=== PATIENT | female | born 1940 | race Caucasian/White ===

== ENCOUNTER → 2018-07-19 10:33 | Outpatient (CLI) | payer MEDICARE, SELFPAY ==
--- NOTE | 2018-07-19 | DI.MG.S_ITS ---
UNILATERAL LEFT DIGITAL SCREENING MAMMOGRAM 3D/2D WITH CAD POST MASTECTOMY: 07/19/2018 CLINICAL: Routine screening. Personal history of right breast cancer. Family history of breast cancer. Comparison is made to exams dated: 05/22/2017 mammogram, 05/13/2016 mammogram, and 12/02/2015 mammogram - [facility]. There are scattered fibroglandular elements in left breast. Current study was also evaluated with a Computer Aided Detection (CAD) system. There are stable benign post operative findings in the left breast. No significant masses, calcifications, or other findings are seen in the breast. There has been no significant interval change. IMPRESSION: There is no mammographic evidence of malignancy. A 1 year screening mammogram is recommended.(07/20/2019) This exam was interpreted at Station ID: [id number]. NOTE: For mammograms, a report in lay terms will be sent to the patient. Approximately 15% of breast malignancies will not be visualized mammographically. In the management of a palpable breast mass, a negative mammogram must not discourage biopsy of a clinically suspicious lesion. Electronically Signed By: Morgan [email or web address]:07/19/2018 11:56:36 copy to: Holly Perez letter sent: Normal Exam ACR BI-RADS Category 2: Benign Finding(s) 3342F
== END ==
PROVIDERS: PCP Family Medicine; Visit Provider Family Medicine
DX: Z12.31 Encounter for screening mammogram for malignant neoplasm of breast (principal); Z85.3 Personal history of malignant neoplasm of breast; Z80.3 Family history of malignant neoplasm of breast
CPT/HCPCS: 77063; 77065

== ENCOUNTER → 2019-03-06 12:59 | Outpatient (CLI) | payer MEDICARE, SELFPAY | PROVIDERS: PCP Family Medicine; Visit Provider Obstetrics & Gynecology | DX: R31.9 Hematuria, unspecified (principal); R39.15 Urgency of urination | CPT/HCPCS: 87077; 87086; 87186 ==

== ENCOUNTER 2019-04-05 16:54 | Emergency (ER) | payer MEDICARE, SELFPAY ==
[2019-04-05 16:57] VITALS: BP 129/69; PULSE 83; RESP 14; TEMP 37.5; O2SAT 96; BMI 25.4
--- NOTE | 2019-04-05 17:32 | ED_ITS ---
HPI - Female Genitourinary <Jamia Kidd PA-C - Last Filed: 04/05/19 20:50> General Chief complaint: Urogenital-Female Stated complaint: VAGINAL PAIN Time Seen by Provider: 04/05/19 17:14 Source: patient Mode of arrival: ambulatory Limitations: no limitations History of Present Illness HPI Narrative: This 78-year-old female states she was sent by her PCP for vaginal pain, possible prolapse or rectal bleed. She states that she has been having intermittent problems with discharge. She was treated for yeast infection and UTI a couple of weeks ago. She states that she had some minimal spotting, then has had some persistent brownish/harrison discharge that gradually got worse. She states that Dr. Perez had her increase her vaginal gel for this. She states that today, vaginal area and pelvis feels ?sore?, not like previous yeast infection, and still has persistent discharge. She denies any dysuria, hematuria or other urinary symptoms. She states her bottom also feels sore with sitting. She states that her stool was dark yesterday and this morning and felt like she had to strain, however bowel movement this afternoon was normal. She brought in a sample from this morning. She has not noted any new masses, just states the whole area feels sore. She isn't exactly sure why she was sent to the ED. She does have a pessary that had been causing some irritation, however that was replaced because she got better by her last visit. Related Data Previous Rx's Medication Instructions Recorded fluconazole 150 mg tablet 150 mg PO ONCE #1 tab 03/06/19 nystatin-triamcinolone 100,000 1 applictn TOP BID #30 gram 03/06/19 unit/gram-0.1 % topical ointment cephalexin [Keflex] 500 mg PO Q12H 7 Days #14 cap 04/05/19 Allergies Allergy/AdvReac Type Severity Reaction Status Date / Time No Known Drug Allergies Allergy Verified 04/05/19 16:57 Review of Systems <Jamia Kidd PA-C - Last Filed: 04/05/19 20:50> Review of Systems ROS Unobtainable: All systems reviewed & are unremarkable except as noted in HPI and below PFSH <Jamia Kidd PA-C - Last Filed: 04/05/19 20:50> Medical History Breast cancer (Resolved 2000) Colorectal cancer (Resolved 2007) Surgical History (Updated 06/12/18 @ 09:35 by Radha Williamson) H/O right hemicolectomy (Resolved 2007) History of bladder suspension procedure (Resolved 2003) Status post appendectomy (Resolved) Status post partial mastectomy (Resolved 2000) Status post tonsillectomy and adenoidectomy (Resolved 1946) Status post vaginal hysterectomy (Resolved 2003) Social History Smoking Status: Never smoker Social History Smoking Status: Never smoker Exam <Jamia Kidd PA-C - Last Filed: 04/05/19 20:50> Narrative Exam Narrative: GENERAL APPEARANCE: Patient sitting comfortably, in no distress. HEENT: PERRL, EOMI, no scleral icterus, conjunctivae pink NECK: Supple LUNGS: Clear to auscultation bilaterally. HEART: Rate and rhythm regular, normal S1 and S2, no S3 or S4. ABDOMEN: Soft, nontender, nondistended, bowel sounds present x 4 quadrants, no masses palpable, no CVAT EXTREMITIES: No edema, no cyanosis : Vaginal tissue is very atrophic, erythematous and shiny. There is visible thin, light brown/opaque discharge in the vaginal vault, tender with speculum insertion. No palpable lesions. Pessary noted. RECTAL: No external lesions or tenderness, minimal brown stool in vault, guaiac negative (sample tested from earlier today as well, also guaiac negative) DERMATOLOGIC: No jaundice or exanthem NEUROLOGIC: Alert and oriented with normal speech and coordination Initial Vital Signs Initial Vital Signs: Vital Signs Temperature 99.5 F 04/05/19 16:57 Pulse Rate 83 04/05/19 16:57 Respiratory Rate 14 04/05/19 16:57 Blood Pressure 129/69 04/05/19 16:57 Pulse Oximetry 96 04/05/19 16:57 <Sunny Lanza MD - Last Filed: 04/06/19 02:42> Initial Vital Signs Initial Vital Signs: Vital Signs Temperature 99.5 F 04/05/19 16:57 Pulse Rate 83 04/05/19 16:57 Respiratory Rate 14 04/05/19 16:57 Blood Pressure 129/69 04/05/19 16:57 Pulse Oximetry 96 04/05/19 16:57 Course <Jamia Kidd PA-C - Last Filed: 04/05/19 20:50> Orders Ordered: ED Orders 04/05/19 18:10 SVITLANA Prep Stat 04/05/19 18:20 Urine Culture Stat Urine Microscopic Stat Wet Prep Tric BV Astrid Stat Vital Signs - 8 hr 04/05/19 19:28 Temperature 98.6 F Pulse Rate 79 Respiratory Rate 15 Blood Pressure [Left Arm] 135/75 Pulse Oximetry 98 <Sunny Lanza MD - Last Filed: 04/06/19 02:42> Orders Ordered: ED Orders 04/05/19 18:10 SVITLANA Prep Stat 04/05/19 18:20 Urine Culture Stat Urine Microscopic Stat Wet Prep Tric BV Astrid Stat Vital Signs - 8 hr 04/05/19 19:28 Temperature 98.6 F Pulse Rate 79 Respiratory Rate 15 Blood Pressure [Left Arm] 135/75 Pulse Oximetry 98 MDM - Female Genitourinary <Jamia Kidd PA-C - Last Filed: 04/05/19 20:50> Lab Data Lab Results 04/05/19 Range/Units 18:20 Urine RBC 5-10/hpf H (0-5/HPF) Urine WBC 10-30/hpf H (0-5/HPF) Ur Squamous Epith Cells 0-1 /hpf (0-5/HPF) Urine Bacteria Few (2-10) H (None) Urine Mucus 1+ H (Negative) Ur Culture Indicated? Specimen cultured Point of Care Testing Stool Occult Blood Negative Urine Dip Bedside Urine Glucose Negative Bedside Urine Bilirubin - Negative Bedside Urine Ketone - Negative Urine Specific [place] 1.030 Bedside Urine Occult Blood +/- Bedside Urine pH 6.0 Bedside Urine Protein +/- 15 Bedside Urine Urobilinogen - Negative Bedside Urine Nitrite - Negative Bedside Urine Leukocytes ++ 125 Esterase <Sunny Lanza MD - Last Filed: 04/06/19 02:42> Lab Data Lab Results 04/05/19 Range/Units 18:20 Urine RBC 5-10/hpf H (0-5/HPF) Urine WBC 10-30/hpf H (0-5/HPF) Ur Squamous Epith Cells 0-1 /hpf (0-5/HPF) Urine Bacteria Few (2-10) H (None) Urine Mucus 1+ H (Negative) Ur Culture Indicated? Specimen cultured Point of Care Testing Stool Occult Blood Negative Urine Dip Bedside Urine Glucose Negative Bedside Urine Bilirubin - Negative Bedside Urine Ketone - Negative Urine Specific [place] 1.030 Bedside Urine Occult Blood +/- Bedside Urine pH 6.0 Bedside Urine Protein +/- 15 Bedside Urine Urobilinogen - Negative Bedside Urine Nitrite - Negative Bedside Urine Leukocytes ++ 125 Esterase Discharge Plan Departure Patient Disposition: Home Clinical Impression: Discharge of vagina, Female pelvic pain UTI (urinary tract infection) Qualifiers: Urinary tract infection type: site unspecified Hematuria presence: without hematuria Qualified Code(s): N39.0 - Urinary tract infection, site not specified Discharge Date/Time: 04/05/19 19:40 Interventions: ED Discharge Assessment Last Done: 04/05/19 19:39 Instructions: DI for Urinary Retention in Women, DI for Atrophic Vaginitis Activity Restrictions/Additional Instructions: As we talked about, you should return if you have any acutely worsening symptoms, i.e. severe pain, or new symptoms such as vomiting or fever. Otherwise, you can call Dr. Perez's office 1st thing on Monday, let them know you were seen in the emergency room and need to follow-up. Your test for typical vaginal infections was negative today. Your stool did not have any microscopic blood. Your urine did have some bacteria in it so I have sent an antibiotic to [facility] for you to take until your cultures are back and you can follow up. It is not clear whether your discharge is due to irritation that you have had recently and using the new gel medication more frequently, so please make sure you follow up assess your progress Prescriptions: New cephalexin [Keflex] 500 mg capsule 500 mg PO Q12H 7 Days Qty: 14 RF: 0 No Action oxyquinoline-sod.lauryl sulfat 113.4 GM gel Qty: 1 RF: 0 fluconazole [Diflucan] 150 mg tablet 150 mg PO ONCE Qty: 1 RF: 0 nystatin-triamcinolone 100,000-0.1 unit/gram-% ointment 1 applictn TOP BID Qty: 30 RF: 0 Referrals: Alonso Cordero MD [Primary Care Provider] - Holly Perez MD [Physician] - <Sunny Lanza MD - Last Filed: 04/06/19 02:42> Cosign ED Attending Cosignature Attestation: I was present in the ER at the time this patient's care. I was available for consultation or to see the patient directly. I agree with the assessment and treatment plan.
[2019-04-05 19:03] LABS: Bacteria Urine Few (2-10); Culture Indicated Urine Specimen Cultured; Mucus Urine 1+ (Negative); RBC Urine 5-10/HPF (0-5/HPF); Squamous Epithelial Cell Urine 0-1 /HPF (0-5/HPF); WBC Urine 10-30/HPF (0-5/HPF)
[2019-04-05 19:28] VITALS: BP 135/75; PULSE 79; RESP 15; TEMP 37; O2SAT 98
== END 2019-04-05 19:40 | disposition home or self-care (01) ==
PROVIDERS: Emergency Provider Internal Medicine; PCP Family Medicine
DX: N89.8 Other specified noninflammatory disorders of vagina (principal); R10.2 Pelvic and perineal pain; N39.0 Urinary tract infection, site not specified
CPT/HCPCS: 81003; 81015; 82272; 87077; 87086; 87147; 87210; 87220; 99282; 99283

== ENCOUNTER → 2019-10-03 09:21 | Outpatient (CLI) | payer MEDICARE, SELFPAY ==
--- NOTE | 2019-10-03 | DI.MG.S_ITS ---
UNILATERAL LEFT DIGITAL SCREENING MAMMOGRAM 3D/2D WITH CAD POST MASTECTOMY: 10/03/2019 CLINICAL: Routine screening. Personal history of right breast cancer. Family history of breast cancer. Comparison is made to exams dated: 07/19/2018 mammogram, 05/22/2017 mammogram, 05/13/2016 mammogram, 12/02/2015 localization, 09/21/2015 mammogram, and 05/06/2015 mammogram - [facility]. There are scattered fibroglandular elements in left breast. Current study was also evaluated with a Computer Aided Detection (CAD) system. There are benign post operative findings in the left breast/axilla that are stable to prior exams, with underlying surgical clips and overlying linear skin scar marker. No significant masses, calcifications, or other findings are seen in the breast. There has been no significant interval change. IMPRESSION: There is no mammographic evidence of malignancy. A 1 year screening mammogram is recommended. This exam was interpreted at Station ID: [id number]. NOTE: For mammograms, a report in lay terms will be sent to the patient. Approximately 15% of breast malignancies will not be visualized mammographically. In the management of a palpable breast mass, a negative mammogram must not discourage biopsy of a clinically suspicious lesion. Electronically Signed By: Neal Cedillo M.D. ecl/:10/03/2019 16:49:38 letter sent: Normal Exam ACR BI-RADS Category 2: Benign Finding(s) 3342F
== END ==
PROVIDERS: Visit Provider Student in an Organized Health Care Education/Training Program
DX: Z12.31 Encounter for screening mammogram for malignant neoplasm of breast (principal); Z80.3 Family history of malignant neoplasm of breast; Z85.3 Personal history of malignant neoplasm of breast
CPT/HCPCS: 77063; 77067

== ENCOUNTER 2019-11-25 12:52 | Day surgery (SDC) | payer MEDICARE, SELFPAY ==
[2019-11-25] MEDS: SODIUM CHLORIDE 0.9% 1,000 ML 200 ML IV (14:41)
[2019-11-25 14:44] VITALS: BP 138/74; PULSE 75; RESP 16; TEMP 36.1; O2SAT 98; BMI 23.8
--- NOTE | 2019-11-25 15:27 | PM.HP.1 ---
History of Present Illness History of Present Illness Date Patient Seen: 11/25/19 Time Patient Seen: 15:27 Chief complaint: [id number] Narrative: 79-year-old female patient who had a colon resection for carcinoma 2007 is asymptomatic and here for screening colonoscopy Patient History Medical History Breast cancer (Resolved 2000) Colorectal cancer (Resolved 2007) Surgical History H/O right hemicolectomy (Resolved 2007) History of bladder suspension procedure (Resolved 2003) Status post appendectomy (Resolved) Status post partial mastectomy (Resolved 2000) Status post tonsillectomy and adenoidectomy (Resolved 1946) Status post vaginal hysterectomy (Resolved 2003) Family & Social History Social History: household members spouse Tobacco & Substance use: Smoking Status Never smoker alcohol intake never alcohol intake frequency holiday/special occasion Substance Use Type does not use Meds Home Medications and Allergies Allergies Allergy/AdvReac Type Severity Reaction Status Date / Time No Known Drug Allergies Allergy Verified 11/25/19 14:42 Review of Systems Review of Systems ROS: Yes All systems reviewed with the patient and are negative except as otherwise documented Exam Vital Signs (past 8 hours): - 11/25/19 14:44 Temperature 97 F L Pulse Rate 75 Respiratory Rate 16 Blood Pressure 138/74 Pulse Oximetry 98 Oxygen Delivery Method Room Air Narrative Exam Narrative: Patient is asymptomatic resting comfortably in bed Lungs are clear with no rales or wheezes Heart regular rhythm no murmur Abdomen soft nontender no organomegaly Rectal be done at colonoscopy Assessment & Plan Assessment & Plan narrative: 79-year-old with a history of right colectomy for carcinoma here for screening colonoscopy she is asymptomatic. She has no unanswered questions.
--- NOTE | 2019-11-25 16:28 | SUR.OPER ---
unable to pass the scope past 50 cm
--- NOTE | 2019-11-25 16:29 | PM.OP.ENDO ---
Operative Date/Time/Diagnoses Date of procedure: 11/25/19 Time of procedure: 16:29 Pre-op diagnosis: History of colon cancer right colectomy 2007 Post-op diagnosis: other (Severe sigmoid diverticulosis retrograde obstruction of colon at 50 cm unknown etiology) Procedure & Clinicians Study performed: Colonoscopy a 50 cm left colon. Same procedure as scheduled: No Surgeon: Devin Peterson Procedure Notes SCOAP/Timeout: This was done Procedure in detail: The patient was properly identified during surgical pause she was given a total of 3 mg of Versed and 150 micro g of fentanyl and remained comfortable throughout the endoscopy. The flexible fiberoptic colonoscope inserted transanally up to 50 cm in the descending colon. The patient has marked severe sigmoid diverticulosis making this very difficult. No polyps or tumors were seen. At the level of 50 cm there was an abrupt obstruction to any retrograde passage and the lumen could not be identified. I did not see tumor at that area. Attempts at entering the colon at that level were impossible and were associated with some minor bleeding. I decided to abandon further endoscopy attempts for fear of perforating or tearing the colon. I recommend an air-contrast barium enema or oral contrast CT scan of the area to further identify pathology. Scope withdrawal time: 7 Sedation minutes: 15 Findings: diverticulosis Impression: Obstruction to retrograde passage of the scope at 50 cm may be secondary to severe diverticulosis at that area or tumor in a patient with previous colon carcinoma. Further investigation with barium enema and or CT scan with oral contrast is indicated. Post-procedure Plan for aftercare: Recommend barium enema and or CT scan with oral contrast. Disposition: PACU
[2019-11-25] MEDS: fentaNYL 250 MCG/5 ML INJ IV (16:31)
[2019-11-25] MEDS: MIDAZOLAM 5 MG/5 ML VIAL IV (16:32)
[2019-11-25 16:34] VITALS: BP 126/64; PULSE 84; RESP 16; TEMP 36.6; O2SAT 95
[2019-11-25 16:39] VITALS: BP 108/51; PULSE 75; RESP 10; O2SAT 95
[2019-11-25 16:44] VITALS: BP 116/62; PULSE 76; RESP 10; O2SAT 95
[2019-11-25 16:49] VITALS: BP 115/54; PULSE 79; RESP 13; TEMP 36.8; O2SAT 97
[2019-11-25 17:00] VITALS: BP 112/68; PULSE 74; RESP 12; TEMP 36.4; O2SAT 96
--- NOTE | 2019-11-25 17:11 | SUR.PHASEII ---
1710 Pt requires frequent repetition to explain test outcome and follow-up. Spouse understands what is needed to do ( spoke to him). Pt drinking juice, tolerating well, abdomen soft.
--- NOTE | 2019-11-25 17:27 | SUR.PHASEII ---
1721 to car in w/c, more alert, pleasant and talking. No further questions.
== END 2019-11-25 17:21 | disposition home or self-care (01) ==
PROVIDERS: PCP Student in an Organized Health Care Education/Training Program; Referring Provider Surgery; Visit Provider Surgery
PROC: 0DJD8ZZ Inspection of Lower Intestinal Tract, Via Natural or Artificial Opening Endoscopic (ICD-10-PCS; CPT 45378; principal; 2019-11-25 16:00)
DX: Z12.11 Encounter for screening for malignant neoplasm of colon (principal); Z85.038 Personal history of other malignant neoplasm of large intestine; Z90.49 Acquired absence of other specified parts of digestive tract; K57.30 Diverticulosis of large intestine without perforation or abscess without bleeding; K56.609 Unspecified intestinal obstruction, unspecified as to partial versus complete obstruction; Z53.09 Procedure and treatment not carried out because of other contraindication
CPT/HCPCS: 45378; 99152; J2250; J3010

== ENCOUNTER → 2020-01-02 11:59 | Outpatient (CLI) | payer MEDICARE, SELFPAY ==
[2020-01-02 12:37] LABS: BUN Creatinine Ratio 14.7 (6-22); Blood Urea Nitrogen 10 mg/dL (7-17); Estimated Glomerular Filt Rate > 60.0 mL/min (>60)
--- NOTE | 2020-01-02 13:42 | DI.CT.S_ITS ---
PROCEDURE: CT ABDOMEN PELVIS W CON INDICATIONS: screening for colon cancer/incomplete colonoscopy TECHNIQUE: After the administration of oral and intravenous contrast, 5 mm thick sections acquired from the diaphragms to the symphysis. 5 mm thick coronal and sagittal reformats were performed. For radiation dose reduction, the following was used: automated exposure control, adjustment of mA and/or kV according to patient size. COMPARISON: [facility], CT, ABDOMEN/PELVIS WITH CONTRAST, 03/27/2008, 12:11. FINDINGS: Image quality: Excellent. ABDOMEN: Lung bases: Lung bases are clear. Heart size is normal. Solid organs: Liver is normal in size and enhancement. Gallbladder appears normal. Biliary system is non-dilated. Pancreas enhances normally. Spleen is normal in size and enhancement. No adrenal nodules. Kidneys are normal in size and enhancement, without hydronephrosis. Peritoneum and bowel: Stomach, small bowel, and colon loops are normal in caliber and wall thickness. No free fluid or air. Nodes and vessels: No retroperitoneal or mesenteric adenopathy. Aorta and inferior vena cava are normal in caliber. Miscellaneous: No ventral hernias. PELVIS: Genitourinary: Bladder wall thickness is normal. Miscellaneous: No inguinal hernias or adenopathy. Diverticulosis is present at the sigmoid colon but no diverticulitis or evidence of colonic mass lesion is found. Quality of visualization of the colon is excellent considering normal amount of stool within throughout. Bones: No suspicious bony lesions. No vertebral body compression fractures. IMPRESSION: The colon is relatively redundant and there is diverticulosis involving the sigmoid colon without acute diverticulitis. No evidence of colonic malignancy. No acute disease is found. Dictated by: Jean-Pierre Moody M.D. on 01/02/2020 at 14:03 Approved by: Jean-Pierre Moody M.D. on 01/02/2020 at 14:06
== END ==
PROVIDERS: Surgery; PCP Student in an Organized Health Care Education/Training Program; Referring Provider Student in an Organized Health Care Education/Training Program; Visit Provider Surgery
DX: Z12.11 Encounter for screening for malignant neoplasm of colon (principal); R59.0 Localized enlarged lymph nodes; K57.30 Diverticulosis of large intestine without perforation or abscess without bleeding
CPT/HCPCS: 36415; 74177; 82565; 84520; Q9967

== ENCOUNTER → 2020-11-19 10:00 | Outpatient (CLI) | payer MEDICARE, SELFPAY ==
--- NOTE | 2020-11-19 | DI.MG.S_ITS ---
UNILATERAL LEFT DIGITAL SCREENING MAMMOGRAM 3D/2D WITH CAD POST MASTECTOMY: 11/19/2020 CLINICAL: Routine screening. Personal history of right breast cancer. Comparison is made to exams dated: 10/03/2019 mammogram, 07/19/2018 mammogram, and 05/22/2017 mammogram - [facility]. There are scattered fibroglandular elements in left breast. Current study was also evaluated with a Computer Aided Detection (CAD) system. There are benign post operative findings in the left breast. No significant masses, calcifications, or other findings are seen in the breast. There has been no significant interval change. IMPRESSION: BENIGN There is no mammographic evidence of malignancy. A 1 year screening mammogram is recommended. This exam was interpreted at Station ID: [id number]. NOTE: For mammograms, a report in lay terms will be sent to the patient. Approximately 15% of breast malignancies will not be visualized mammographically. In the management of a palpable breast mass, a negative mammogram must not discourage biopsy of a clinically suspicious lesion. Electronically Signed By: Ricardo burgos/mague:11/19/2020 11:06:35 letter sent: Normal Exam ACR BI-RADS Category 2: Benign Finding(s) 3342F
== END ==
PROVIDERS: PCP Student in an Organized Health Care Education/Training Program; Referring Provider Student in an Organized Health Care Education/Training Program; Visit Provider Student in an Organized Health Care Education/Training Program
DX: Z12.31 Encounter for screening mammogram for malignant neoplasm of breast (principal); Z85.3 Personal history of malignant neoplasm of breast
CPT/HCPCS: 77063; 77067

== ENCOUNTER 2020-12-15 15:33 | Emergency (ER) | payer MEDICARE, SELFPAY ==
[2020-12-15 15:48] VITALS: BP 157/70; PULSE 75; RESP 22; TEMP 36.8; O2SAT 96
--- NOTE | 2020-12-15 18:37 | DI.RAD.S_ITS ---
PROCEDURE: XR ABDOMEN MIN 2V INDICATIONS: vomiting s/p covid shot TECHNIQUE: 2 views of the abdomen were acquired. COMPARISON: None. FINDINGS: Surgical changes and devices: Pelvic surgical clips. Bowel: No pneumoperitoneum. The bowel gas pattern is normal. Soft tissues: No masses; visualized solid organ contours appear normal in size. No suspicious abdominal calcifications. Bones: No suspicious bony abnormalities. IMPRESSION: Negative examination as above Dictated by: Tay Oconnor M.D. on 12/15/2020 at 19:01 Approved by: Tay Oconnor M.D. on 12/15/2020 at 19:01
[2020-12-15 19:54] VITALS: BP 146/70; PULSE 71; RESP 18; O2SAT 96
[2020-12-15] MEDS: SODIUM CHLORIDE 0.9% 1,000 ML 1000 ML IV (20:06)
[2020-12-15] MEDS: ONDANSETRON 4 MG/2 ML INJ IV (20:06)
--- NOTE | 2020-12-15 20:12 | ED_ITS ---
HPI - Nausea/Vomiting/Diarrhea General Chief complaint: Nausea/Vomiting/Diarrhea Stated complaint: vomiting s/p covid shot Time Seen by Provider: 12/15/20 18:37 Source: patient and family Mode of arrival: Ambulatory Limitations: no limitations History of Present Illness HPI Narrative: This is a 80-year-old female who states that she had her 2nd COVID vaccine yesterday. She started developed some arm pain and then nausea, vomiting and had not been able to keep anything down overnight. She did have several bowel movements which she stated or solid, she denies any hematochezia or melena. She states she has had generalized abdominal pain sort of a twisting sensation. She has also recently had a bladder infection and has been on oral antibiotics. She has got 4 doses left. She was unable to take any today because of her emesis. She has urinary symptoms had resolved the day before her immunization. She denies any fevers. Patient states she does not take any other medications daily. She does have a significant medical history with what she states was an abdominal surgery called a tram,she describes this as a reconstructive surgery for mastectomy status post cancer where they took a portion of her abdomen and placed in the breast. She had multiple complications and had 3 subsequent surgeries. She has had a hysterectomy. Hemicolectomy. She states she is feeling significantly better at this time. Related Data Allergies Allergy/AdvReac Type Severity Reaction Status Date / Time No Known Drug Allergies Allergy Verified 11/25/19 14:42 Review of Systems Review of Systems ROS Unobtainable: All systems reviewed & are unremarkable except as noted in HPI and below Patient History Medical History (Updated 12/15/20 @ 20:31 by Lisette Davila DO) Breast cancer (2000) Colorectal cancer (2007) Surgical History H/O right hemicolectomy (2007) History of bladder suspension procedure (2003) Status post appendectomy Status post partial mastectomy (2000) Status post tonsillectomy and adenoidectomy (1946) Status post vaginal hysterectomy (2003) Social History household members: spouse Smoking Status: Never smoker alcohol intake: never Smoking Status: Never smoker alcohol intake frequency: holidays/special occasions only Substance Use Type: does not use Exam Narrative Exam Narrative: GENERAL: Alert and oriented x three, thin, well-appearing elderly female in mild distress. HEENT: Head normocephalic, atraumatic, EOMI, pupils reactive, face symmetric, moist mucous membranes NECK: Supple, full range of motion CARDIOVASCULAR: Regular rate and rhythm without murmurs, rubs or gallops. RESPIRATORY: Breath sounds equal bilaterally, no wheezes rales or rhonchi. ABDOMEN: Soft, mild generalized tenderness. Normoactive bowel sounds all 4 quadrants. No guarding or rebound, rigidity, no mass : No CVA tenderness EXTREMITIES: Normal range of motion, no clubbing or edema. Neurovascularly intact NEUROLOGICAL: Cranial nerves II through XII grossly intact. Moving all extremities SKIN: Warm, dry, no petechiae, no rashes or lesions. Initial Vital Signs Initial Vital Signs: Vital Signs Temperature 98.3 F 12/15/20 15:48 Pulse Rate 75 12/15/20 15:48 Respiratory Rate 22 12/15/20 15:48 Blood Pressure 157/70 H 12/15/20 15:48 Pulse Oximetry 96 12/15/20 15:48 Course Orders Ordered: ED Orders 12/15/20 18:37 XR abdomen min 2V Stat 12/15/20 20:14 Complete Blood Count AUTO DIFF Stat Comprehensive Metabolic Panel Stat Lipase Stat Discontinued Medications Sodium Chloride (Normal Saline 0.9%) 1,000 mls @ 1,000 mls/hr IV BOLUS ONE Stop: 12/15/20 19:36 Last Infusion: 12/15/20 21:10 Dose: 0 mls/hr Documented by: Admin: 12/15/20 20:06 Dose: 1,000 mls/hr Documented by: LISA Ondansetron HCl (Ondansetron 4 Mg/2 Ml Inj) 4 mg IV NOW ONE Stop: 12/15/20 18:38 Last Admin: 12/15/20 20:06 Dose: 4 mg Documented by: LISA Ondansetron HCl (Ondansetron 4 Mg Odt Prepack) 1 bottle MISC SEEINSTR ONE Stop: 12/15/20 21:32 Last Admin: 12/15/20 21:36 Dose: 1 bottle Documented by: PAU Vital Signs Vital signs: Vital Signs - 8 hr 12/15/20 19:54 12/15/20 21:28 12/15/20 21:40 Pulse Rate 71 61 84 Respiratory Rate 18 16 16 Blood Pressure 146/70 H 121/68 121/56 L Pulse Oximetry 96 100 97 MDM - Nausea/Vomiting/Diarrhea Lab Data Attestation: I reviewed the patient's lab results. Result diagrams: 12/15/20 20:14 12/15/20 20:14 Labs: Lab Results 12/15/20 12/15/20 Range/Units 20:14 20:14 WBC 9.6 (4.5-11.0) X10^3/uL RBC 4.38 (4.0-5.2) X10^6/uL Hgb 14.0 (12.0-16.0) g/dL Hct 42.0 (36-46) % MCV 95.9 (80-100) fL MCH 31.9 (26-34) PG MCHC 33.3 (30-36) % RDW 13.9 (11.6-14.8) % Plt Count 246 (150-400) X10^3/uL Neut % (Auto) 75.4 H (50-75) % Lymph % (Auto) 14.9 L (25-40) % [place] % (Auto) 7.4 (3-14) % Eos % (Auto) 1.4 L (2-4) % Baso % (Auto) 0.9 (0-2) % Neut # (Auto) 7200 H (2170-2300) /uL Lymph # (Auto) 1400 (7580-1454) /uL [place] # (Auto) 700 (0-900) /uL Eos # (Auto) 100 (0-450) /uL Baso # (Auto) 100 (0-100) /uL Sodium 136 L (137-145) mmol/L Potassium 3.4 (3.4-5.1) mmol/L Chloride 102 (98-107) mmol/L Carbon Dioxide 28 (22-32) mmol/L BUN 18 H (7-17) mg/dL Creatinine 0.71 (0.52-1.04) mg/dL Estimated GFR > 60.0 (>60) mL/min BUN/Creatinine Ratio 25.4 H (6-22) Glucose 124 H (80-110) mg/dL Calcium 9.8 (8.4-10.2) mg/dL Total Bilirubin 0.7 (0.2-1.3) mg/dL AST 25 (14-36) IU/L ALT 15 (<35) IU/L Alkaline Phosphatase 66 (38-126) U/L Total Protein 7.3 (6.3-8.2) g/dL Albumin 4.2 (3.5-5.0) g/dL Globulin 3.1 (1.7-4.1) g/dL Albumin/Globulin Ratio 1.4 (1.0-2.8) Lipase 43 (23-300) U/L Urine Dip Bedside Urine Glucose Negative Bedside Urine Bilirubin - Negative Bedside Urine Ketone - Negative Urine Specific [place] 1.015 Bedside Urine Occult Blood +/- Bedside Urine pH 6.0 Bedside Urine Protein - Negative Bedside Urine Urobilinogen - Negative Bedside Urine Nitrite - Negative Bedside Urine Leukocytes - Negative Esterase Imaging Data Abdominal x-ray: Radiologist's Impression: Mela Nguyen 80 F [address] [id number] ReportSigned Patient: Mela Nguyen AMR#: [id number]: 1940cct:[id number]/Sex: 80 / FDate of Service: 12/15/20Loc: EDAccession Number: [id number] Procedure: XR abdomen min 2V Ordering Provider: Lisette Davila D.O. PROCEDURE: XR ABDOMEN MIN 2V INDICATIONS: vomiting s/p covid shot TECHNIQUE: 2 views of the abdomen were acquired. COMPARISON: None. FINDINGS: Surgical changes and devices: Pelvic surgical clips. Bowel: No pneumoperitoneum. The bowel gas pattern is normal. Soft tissues: No masses; visualized solid organ contours appear normal in size. No suspicious abdominal calcifications. Bones: No suspicious bony abnormalities. IMPRESSION: Negative examination as above Dictated by: Tay Oconnor M.D. on 12/15/2020 at 19:01 Approved by: Tay Oconnor M.D. on 12/15/2020 at 19:01 [facility] Narrative Medical decision making narrative: Pleasant 80-year-old female comes emergency department with vomiting status 2nd coronavirus immunization. Symptoms started several hours later. She does have a recent history significant for bladder infection which has been improving. She has missed her most recent dose of antibiotics. Patient x-ray does not show any obstructive symptoms. She does not have any obstructive symptoms with normal bowel movements but has had vomiting. Her pain is improved after fluids. Patient tolerating oral challenge. Urine does not show any acute changes. For DC home with return precautions for red flag symptoms. Discharge Plan Departure Patient Disposition: Home Clinical Impression: Vomiting Activity Restrictions/Additional Instructions: Follow up with your physician in the next 2-3 days if your symptoms have not totally resolved. You may take Zofran 1 tab every 6 hours as needed for nausea. Continue home medications as prescribed. Return to the ER for fevers, persistent vomiting, new or worsening abdominal pain, black or bloody stools, inability to have a bowel movement, difficulty with urination, recurrent frequency, dysuria urgency, lightheadedness or passing out, new chest pain or shortness of breath or other new or concerning symptoms. Referrals: Latanya Strong MD [Primary Care Provider] -
[2020-12-15 20:20] LABS: Add Manual Diff / Slide Review NO; Basophils Absolute Auto 100 /uL (0-100); Basophils Percent Auto 0.9 % (0-2); Eosinophils Absolute Auto 100 /uL (0-450); Eosinophils Percent Auto 1.4 % (2-4); Lymphocytes Absolute Auto 1400 /uL (1100-4500); Lymphocytes Percent Auto 14.9 % (25-40); Mean Corpuscular HGB Conc 33.3 % (30-36); Mean Corpuscular Hemoglobin 31.9 PG (26-34); Mean Corpuscular Volume 95.9 fL (80-100); Monocytes Absolute Auto 700 /uL (0-900); Monocytes Percent Auto 7.4 % (3-14); Neutrophils Absolute Auto 7200 /uL (1500-7000); Neutrophils Percent Auto 75.4 % (50-75); Platelet Count 246 X10^3/uL (150-400); Red Blood Cell Count 4.38 X10^6/uL (4.0-5.2); Red Cell Distribution Width 13.9 % (11.6-14.8); White Blood Cell Count 9.6 X10^3/uL (4.5-11.0)
[2020-12-15 20:33] LABS: Alanine Aminotransferase 15 IU/L (<35); Albumin 4.2 g/dL (3.5-5.0); Albumin Globulin Ratio 1.4 (1.0-2.8); Alkaline Phosphatase 66 U/L (38-126); Aspartate Aminotransferase 25 IU/L (14-36); BUN Creatinine Ratio 25.4 (6-22); Bilirubin Total 0.7 mg/dL (0.2-1.3); Blood Urea Nitrogen 18 mg/dL (7-17); Calcium 9.8 mg/dL (8.4-10.2); Carbon Dioxide 28 mmol/L (22-32); Chloride 102 mmol/L (98-107); Estimated Glomerular Filt Rate > 60.0 mL/min (>60); Globulin 3.1 g/dL (1.7-4.1); Glucose 124 mg/dL (80-110); HEMOLYSIS < 15 (0-50); Lipase 43 U/L (23-300); Potassium 3.4 mmol/L (3.4-5.1); Sodium 136 mmol/L (137-145); Total Protein 7.3 g/dL (6.3-8.2)
[2020-12-15 21:28] VITALS: BP 121/68; PULSE 61; RESP 16; O2SAT 100
[2020-12-15] MEDS: ONDANSETRON 4 MG ODT PREPACK 1 BOTTLE MISC (21:36)
[2020-12-15 21:40] VITALS: BP 121/56; PULSE 84; RESP 16; O2SAT 97
== END 2020-12-15 21:40 | disposition home or self-care (01) ==
PROVIDERS: Emergency Provider Emergency Medicine; PCP Student in an Organized Health Care Education/Training Program
DX: R11.10 Vomiting, unspecified (principal); R10.84 Generalized abdominal pain
CPT/HCPCS: 36415; 74019; 80053; 81003; 83690; 85025; 96361; 96374; 99281; 99284; J2405

== ENCOUNTER → 2020-12-24 13:39 | Outpatient (CLI) | payer MEDICARE, SELFPAY | PROVIDERS: PCP Student in an Organized Health Care Education/Training Program; Referring Provider Student in an Organized Health Care Education/Training Program; Visit Provider Student in an Organized Health Care Education/Training Program | DX: M85.852 Other specified disorders of bone density and structure, left thigh (principal); Z82.62 Family history of osteoporosis; Z85.3 Personal history of malignant neoplasm of breast; Z87.891 Personal history of nicotine dependence | CPT/HCPCS: 77080 ==

== ENCOUNTER 2021-10-09 11:00 | Emergency (ER) | payer MEDICARE, SELFPAY ==
[2021-10-09 11:05] VITALS: BP 141/69; PULSE 95; RESP 18; TEMP 36.7; O2SAT 96; BMI 24.3
--- NOTE | 2021-10-09 11:19 | ED_ITS ---
HPI - Abdominal Pain General Chief Complaint: Abdominal Pain Stated Complaint: abd pain Time Seen by Provider: 10/09/21 11:13 History of Present Illness HPI narrative: 81F nonsmoker with history of colon cancer with subsequent colon resection presents with her and the chief complaint of gradually worsening generalized abdominal pain for the past few days. She states any motion hurts. She has had some mild constipation but states this feels different. She has had nausea but denies any vomiting. Other than motion she denies any obvious provocation. She took some milk of magnesia and produced a decent bowel movement earlier today but this provided no relief to her discomfort. She has not had any fever or chills. She denies any runny nose, sore throat or cough. She denies any dietary change or new medications. Her last colonoscopy was about 8 years ago. Related Data Previous Rx's Medication Instructions Recorded amoxicillin 875 mg-potassium 1 tab PO BID #20 tab 10/09/21 clavulanate 125 mg tablet (Augmentin) doxycycline hyclate 100 mg tablet 100 mg PO BID #20 tab 10/09/21 hydrocodone 5 mg-acetaminophen 325 1 tab PO Q4-6H PRN #10 tab 10/09/21 mg tablet ondansetron 4 mg disintegrating 4 mg PO TID-QID PRN #10 tab 10/09/21 tablet Allergies Allergy/AdvReac Type Severity Reaction Status Date / Time No Known Drug Allergies Allergy Verified 11/25/19 14:42 Review of Systems Review of Systems Narrative: GENERAL: Denies chills, fatigue, malaise, fever, sweats. HEENT: Denies sinus pain, ear pain, sore throat, difficulty swallowing, dizziness. RESPIRATORY: Denies dyspnea, cough, wheezing, hemoptysis, sputum. CARDIOVASCULAR: Denies chest pain, palpitations, orthopnea, edema, GASTROINTESTINAL: See HPI : Denies dysuria, frequency, incontinence, hematuria, urinary retention. MUSCULOSKELETAL: denies weakness, joint pain, or bony pain SKIN: Denies rash, skin lesions, or other NEUROLOGIC: Denies weakness, headache, numbness, change in speech, confusion, seizures, incoordination. PSYCHIATRIC: No concerning psychosocial issues. 12 point review of systems is negative except for those stated above Patient History Medical History (Updated 10/09/21 @ 13:45 by Ronen [place], DO) Breast cancer (2000) Colorectal cancer (2007) Surgical History H/O right hemicolectomy (2007) History of bladder suspension procedure (2003) Status post appendectomy Status post partial mastectomy (2000) Status post tonsillectomy and adenoidectomy (1946) Status post vaginal hysterectomy (2003) Social History household members: spouse Smoking Status: Never smoker alcohol intake: never Smoking Status: Never smoker alcohol intake frequency: holidays/special occasions only Substance Use Type: does not use Exam Narrative Exam Narrative: GENERAL: [81 year old patient appears stated age. Well-developed patient, in mild distress. HEAD: Atraumatic. Normocephalic. EYES: Pupils equal round and reactive. Extraocular motions intact. No scleral icterus. No injection or drainage. ENT: Nose without bleeding, purulent drainage. Throat without erythema, tonsillar hypertrophy or exudate. Airway patent. NECK: Trachea midline. Non tender CARDIOVASCULAR: Regular rate and rhythm without murmurs, gallops, or rubs. RESPIRATORY: Clear to auscultation. Breath sounds equal bilaterally. No wheezes, rales, or rhonchi. GASTROINTESTINAL: Abdomen soft, tender throughout with decreased bowel sounds although they are present. Nondistended. EXTREMITIES: No edema or joint tenderness. BACK: Nontender without deformity or crepitance. No flank tenderness. NEURO: AOx3. SKIN: No rash or erythema of visible areas Initial Vital Signs Initial Vital Signs: Vital Signs Temperature 98.1 F 10/09/21 11:05 Pulse Rate 95 H 10/09/21 11:05 Respiratory Rate 18 10/09/21 11:05 Blood Pressure 141/69 H 10/09/21 11:05 Pulse Oximetry 96 10/09/21 11:05 Course Orders Ordered: ED Orders 10/09/21 11:20 Complete Blood Count AUTO DIFF Stat Comprehensive Metabolic Panel Stat Lipase Stat 10/09/21 11:21 EKG-12 Lead Stat 10/09/21 12:01 CT abdomen pelvis w con Stat Discontinued Medications Hydrocodone Bitart/Acetaminophen (Hydrocodone/Acet 5/325 Prepack) 1 bottle MISC SEEINSTR ONE Stop: 10/09/21 13:34 Last Admin: 10/09/21 13:51 Dose: 1 bottle Documented by: PAU Amoxicillin/Clavulanate Potassium (Amoxicillin/Clav 875/125 Mg) 1 tab PO NOW ONE Stop: 10/09/21 13:34 Last Admin: 10/09/21 13:52 Dose: 1 tab Documented by: PAU Doxycycline Hyclate (Doxycycline Hyclate 100 Mg Tablet) 100 mg PO NOW ONE Stop: 10/09/21 13:03 Last Admin: 10/09/21 13:06 Dose: Not Given Documented by: PAU Fentanyl (Fentanyl 100 Mcg/2 Ml Inj) 25 mcg IV NOW ONE Stop: 10/09/21 12:02 Last Admin: 10/09/21 12:15 Dose: 25 mcg Documented by: PAU Sodium Chloride (Normal Saline 0.9%) 500 mls @ 1,000 mls/hr IV BOLUS ONE Stop: 10/09/21 12:30 Last Infusion: 10/09/21 12:45 Dose: 0 mls/hr Documented by: Admin: 10/09/21 12:15 Dose: 1,000 mls/hr Documented by: PAU Ondansetron HCl (Ondansetron 4 Mg/2 Ml Inj) 4 mg IV NOW ONE Stop: 10/09/21 12:02 Last Admin: 10/09/21 12:16 Dose: 4 mg Documented by: PAU Ondansetron HCl (Ondansetron 4 Mg Odt Prepack) 1 bottle MISC SEEINSTR ONE Stop: 10/09/21 13:34 Last Admin: 10/09/21 13:51 Dose: 1 bottle Documented by: PAU Vital Signs Vital signs: Vital Signs - 8 hr 10/09/21 11:05 10/09/21 13:03 10/09/21 13:30 Temperature 98.1 F Pulse Rate 95 H 91 H 88 Respiratory Rate 18 20 20 Blood Pressure 141/69 H 143/67 H 133/61 Pulse Oximetry 96 95 96 MDM - Abdominal Pain Lab Data Result diagrams: 10/09/21 11:20 10/09/21 11:20 Labs: Lab Results 10/09/21 10/09/21 Range/Units 11:20 11:20 WBC 10.6 (4.5-11.0) X10^3/uL RBC 4.28 (4.0-5.2) X10^6/uL Hgb 13.6 (12.0-16.0) g/dL Hct 40.7 (36-46) % MCV 94.9 (80-100) fL MCH 31.8 (26-34) PG MCHC 33.6 (30-36) % RDW 14.5 (11.6-14.8) % Plt Count 210 (150-400) X10^3/uL Neut % (Auto) 78.1 H (50-75) % Lymph % (Auto) 12.7 L (25-40) % [place] % (Auto) 7.2 (3-14) % Eos % (Auto) 1.3 L (2-4) % Baso % (Auto) 0.7 (0-2) % Neut # (Auto) 8300 H (0984-7617) /uL Lymph # (Auto) 1300 (5709-3530) /uL [place] # (Auto) 800 (0-900) /uL Eos # (Auto) 100 (0-450) /uL Baso # (Auto) 100 (0-100) /uL Sodium 140 (137-145) mmol/L Potassium 3.9 (3.4-5.1) mmol/L Chloride 105 (98-107) mmol/L Carbon Dioxide 30 (22-32) mmol/L BUN 13 (7-17) mg/dL Creatinine 0.75 (0.52-1.04) mg/dL Estimated GFR > 60.0 (>60) mL/min BUN/Creatinine Ratio 17.3 (6-22) Glucose 122 H (80-110) mg/dL Calcium 9.5 (8.4-10.2) mg/dL Total Bilirubin 0.9 (0.2-1.3) mg/dL AST 25 (14-36) IU/L ALT 14 (<35) IU/L Alkaline Phosphatase 69 (38-126) U/L Total Protein 7.8 (6.3-8.2) g/dL Albumin 4.2 (3.5-5.0) g/dL Globulin 3.6 (1.7-4.1) g/dL Albumin/Globulin Ratio 1.2 (1.0-2.8) Lipase 49 (23-300) U/L Point of care testing: Urine Dip Bedside Urine Glucose Negative Bedside Urine Bilirubin - Negative Bedside Urine Ketone - Negative Urine Specific [place] 1.010 Bedside Urine Occult Blood +/- Bedside Urine pH 8.0 Bedside Urine Protein - Negative Bedside Urine Urobilinogen 0.2 Bedside Urine Nitrite - Negative Bedside Urine Leukocytes +/- [address] scan - abdomen/pelvis: Radiologist's Impression: [address] [address] Ultrasound Report Signed Patient: Jimmie Weems MR#: [id number] : 05/15/1947 Acct:[id number] Age/Sex: 74 / M Date of Service: 10/09/21 Loc: ED Accession Number: [id number] ?? Procedure: US periph venous low extrem lt Ordering Provider: Ronen Price D.O. PROCEDURE:? US PERIPH VENOUS LOW EXTREM LT ? INDICATIONS:? pain, swelling, redness, 5 days post op, sent by ortho ? TECHNIQUE:? Real-time imaging, as well as color and pulse Doppler interrogation, were performed of the lower extremity deep veins from the inguinal ligament to the popliteal fossa.? ? COMPARISON:? None. ? FINDINGS:? The common femoral, femoral and popliteal veins are normally compressible, and free of intraluminal thrombus.? Color and pulse Doppler demonstrate normal phasic intraluminal flow.? There is normal augmentation response to distal compression maneuver. ? ? IMPRESSION:? No sonographic evidence of DVT. ? ? Dictated by: Clyde Gamino M.D. on 10/09/2021 at 10:15 ? ? Approved by: Clyde Gamino M.D. on 10/09/2021 at 10:18 ? MDM Narrative Medical decision making narrative: Patient has a very reassuring history and physical exam. Labs are unremarkable, CT demonstrates diverticulitis without abscess or perforation. Her pain is well controlled and she is tolerating orals. Return precautions given and qu estions answered to her apparent satisfaction Discharge Plan Departure Patient Disposition: Home Clinical Impression: Diverticulitis Instructions: Diverticulitis Activity Restrictions/Additional Instructions: *You have been diagnosed with [diverticulitis with reassuring labs and no CT evidence of abscess or perforation. *What to do: *Please continue to take your regular medications as directed. [x ] New medication prescriptions sent to your pharmacy: [[facility]] [ ] New medication written as a paper prescription [ ] No new medications given *Please follow up with your primary care provider in 2-3 days, call for an appointment. Let them know you were seen in the Emergency Department and that we ask that you be seen in follow up. We will electronically transmit a record of today's note if your PCP is in our system * as we discussed, please consider a clear liquid diet for the next 24-48 hours. *If you do not have a primary care provider please contact the [facility] Resource line at [phone]. They will ask some questions about your medical history and help get you set up with a doctor in the community. *Return to Emergency Department if you should have any new, worsening or concerning symptoms, such as [fever greater than 101 F, shaking chills, worsening pain, persistent vomiting or other bothersome symptoms] Prescriptions: New doxycycline hyclate 100 mg tablet 100 mg PO BID Qty: 20 0RF hydrocodone-acetaminophen 5-325 mg tablet 1 tab PO Q4-6H PRN (Reason: pain) Qty: 10 0RF ondansetron 4 mg tablet,disintegrating 4 mg PO TID-QID PRN (Reason: nausea and vomiting) Qty: 10 0RF amoxicillin-pot clavulanate [Augmentin] 875-125 mg tablet 1 tab PO BID Qty: 20 0RF Referrals: Latanya Strong MD [Primary Care Provider] -
[2021-10-09 11:25] LABS: Add Manual Diff / Slide Review NO; Basophils Absolute Auto 100 /uL (0-100); Basophils Percent Auto 0.7 % (0-2); Eosinophils Absolute Auto 100 /uL (0-450); Eosinophils Percent Auto 1.3 % (2-4); Hematocrit 40.7 % (36-46); Hemoglobin 13.6 g/dL (12.0-16.0); Lymphocytes Absolute Auto 1300 /uL (1100-4500); Lymphocytes Percent Auto 12.7 % (25-40); Mean Corpuscular HGB Conc 33.6 % (30-36); Mean Corpuscular Hemoglobin 31.8 PG (26-34); Mean Corpuscular Volume 94.9 fL (80-100); Monocytes Absolute Auto 800 /uL (0-900); Monocytes Percent Auto 7.2 % (3-14); Neutrophils Absolute Auto 8300 /uL (1500-7000); Neutrophils Percent Auto 78.1 % (50-75); Platelet Count 210 X10^3/uL (150-400); Red Blood Cell Count 4.28 X10^6/uL (4.0-5.2); Red Cell Distribution Width 14.5 % (11.6-14.8); White Blood Cell Count 10.6 X10^3/uL (4.5-11.0)
[2021-10-09 11:44] LABS: Alanine Aminotransferase 14 IU/L (<35); Albumin 4.2 g/dL (3.5-5.0); Albumin Globulin Ratio 1.2 (1.0-2.8); Alkaline Phosphatase 69 U/L (38-126); Aspartate Aminotransferase 25 IU/L (14-36); BUN Creatinine Ratio 17.3 (6-22); Bilirubin Total 0.9 mg/dL (0.2-1.3); Blood Urea Nitrogen 13 mg/dL (7-17); Calcium 9.5 mg/dL (8.4-10.2); Carbon Dioxide 30 mmol/L (22-32); Chloride 105 mmol/L (98-107); Estimated Glomerular Filt Rate > 60.0 mL/min (>60); Globulin 3.6 g/dL (1.7-4.1); Glucose 122 mg/dL (80-110); HEMOLYSIS < 15 (0-50); Lipase 49 U/L (23-300); Potassium 3.9 mmol/L (3.4-5.1); Sodium 140 mmol/L (137-145); Total Protein 7.8 g/dL (6.3-8.2)
--- NOTE | 2021-10-09 12:01 | DI.CT.S_ITS ---
PROCEDURE: CT ABDOMEN PELVIS W CON INDICATIONS: severe pain, history of CA and resection TECHNIQUE: After the administration of intravenous contrast, axial sections acquired from the lung bases to the pubic symphysis. Coronal and sagittal reformats were performed. For radiation dose reduction, the following was used: automated exposure control, adjustment of mA and/or kV according to patient size. COMPARISON: [facility], CT, CT ABDOMEN PELVIS W CON, 01/02/2020, 13:21. FINDINGS: Image quality: Excellent. Lung bases: Lung bases are clear. Heart size is normal. Solid organs: Liver: The liver has no mass or intrahepatic biliary ductal dilatation. The portal vein and hepatic veins are patent. Biliary: The gallbladder has no gallstones, pericholecystic fluid, gallbladder wall thickening, or surrounding inflammatory change. Pancreas: The pancreas has no mass or ductal dilatation. There is no surrounding inflammation. Spleen: Normal size. There are no masses. Adrenals: No hypertrophy or nodules. Kidneys: No obstructive calculus or hydronephrosis. No solid mass. No cystic mass. Peritoneum and bowel: The distal esophagus and stomach are normal. The small bowel has a normal caliber and appearance. The terminal ileum is normal. The large bowel has diverticulosis with a 10 cm segment in the mid to proximal sigmoid colon which demonstrates wall thickening and surrounding inflammation consistent acute diverticulitis. There is no evidence of perforation or abscess. The patient is status post right hemicolectomy with anastomotic staple seen in the right upper quadrant. The appendix is not definitively visualized; however there are no secondary findings to suggest acute appendicitis. No free fluid or air. Nodes and vessels: No retroperitoneal or mesenteric adenopathy by size criteria. The aorta has atherosclerosis with no aneurysmal dilatation. Miscellaneous: No abdominal wall mass or hernia. PELVIS: Genitourinary: The bladder has no wall thickening or mass. No bladder calcifications. A pessary is seen. Bones: No suspicious bony lesions. No vertebral body compression fractures. IMPRESSION: 1. Acute sigmoid diverticulitis without evidence of perforation or abscess. Recommend colonoscopy after clinical improvement to rule out underlying neoplasm. 2. Status post right hemicolectomy. Dictated by: Tan Doran M.D. on 10/09/2021 at 12:17 Approved by: Tan Doran M.D. on 10/09/2021 at 12:23
[2021-10-09] MEDS: SODIUM CHLORIDE 0.9% 500 ML 1000 ML IV (12:15)
[2021-10-09] MEDS: fentaNYL 100 MCG/2 ML INJ 25 MCG IV (12:15)
[2021-10-09] MEDS: ONDANSETRON 4 MG/2 ML INJ IV (12:16)
[2021-10-09 13:03] VITALS: BP 143/67; PULSE 91; RESP 20; O2SAT 95
[2021-10-09 13:30] VITALS: BP 133/61; PULSE 88; PULSE 91; RESP 20; O2SAT 95; O2SAT 96
[2021-10-09] MEDS: HYDROCODONE/ACET 5/325 PREPACK 1 BOTTLE MISC (13:51)
[2021-10-09] MEDS: ONDANSETRON 4 MG ODT PREPACK 1 BOTTLE MISC (13:51)
[2021-10-09] MEDS: AMOXICILLIN/CLAV 875/125 MG 1 TAB PO (13:52)
== END 2021-10-09 14:09 | disposition home or self-care (01) ==
PROVIDERS: Emergency Provider Emergency Medicine; PCP Student in an Organized Health Care Education/Training Program
DX: K57.32 Diverticulitis of large intestine without perforation or abscess without bleeding (principal)
CPT/HCPCS: 36415; 74177; 80053; 81003; 83690; 85025; 96374; 96375; 99284; J2405; J3010; Q9967

== ENCOUNTER → 2021-12-01 11:13 | Outpatient (CLI) | payer MEDICARE, SELFPAY ==
--- NOTE | 2021-12-01 | DI.MG.S_ITS ---
UNILATERAL LEFT DIGITAL SCREENING MAMMOGRAM 3D/2D WITH CAD POST MASTECTOMY: 12/01/2021 CLINICAL: Routine screening. Breast cancer. Family history of breast cancer. Comparison is made to exams dated: 11/19/2020 mammogram, 10/03/2019 mammogram, and 07/19/2018 mammogram - [facility]. The tissue of left breast is predominantly fatty. Current study was also evaluated with a Computer Aided Detection (CAD) system. There are benign post operative findings in the left breast. No significant masses, calcifications, or other findings are seen in the breast. There has been no significant interval change. IMPRESSION: BENIGN There is no mammographic evidence of malignancy. A 1 year screening mammogram is recommended. This exam was interpreted at Station ID: [id number]. NOTE: For mammograms, a report in lay terms will be sent to the patient. Approximately 15% of breast malignancies will not be visualized mammographically. In the management of a palpable breast mass, a negative mammogram must not discourage biopsy of a clinically suspicious lesion. Electronically Signed By: Marleni cuellar/mague:12/01/2021 13:10:13 letter sent: Normal Exam ACR BI-RADS Category 2: Benign Finding(s) 3342F
== END ==
PROVIDERS: PCP Student in an Organized Health Care Education/Training Program; Referring Provider Student in an Organized Health Care Education/Training Program; Visit Provider Student in an Organized Health Care Education/Training Program
DX: Z12.31 Encounter for screening mammogram for malignant neoplasm of breast (principal); Z85.3 Personal history of malignant neoplasm of breast; Z80.3 Family history of malignant neoplasm of breast
CPT/HCPCS: 77063; 77067

== ENCOUNTER → 2021-12-06 10:44 | Outpatient (CLI) | payer MEDICARE, SELFPAY ==
[2021-12-06 13:34] LABS: COVID19 -Nasal RAPID Negative (Negative)
== END ==
PROVIDERS: PCP Student in an Organized Health Care Education/Training Program; Visit Provider Family Medicine Sleep Medicine
DX: Z20.822 Contact with and (suspected) exposure to COVID-19 (principal)
CPT/HCPCS: 87635; C9803

== ENCOUNTER 2021-12-08 12:23 | Day surgery (SDC) | payer MEDICARE, SELFPAY ==
[2021-12-08] VITALS (7 sets, daily range): BP systolic 109–143; BP diastolic 52–73; PULSE 68–80; RESP 13–16; TEMP 36.1–36.7; O2SAT 97–100; BMI 25.0
--- NOTE | 2021-12-08 | PATH_ITS ---
[facility] Accession Number: [id number] . 01 Material submitted: . rectum - RECTAL POLYP . 02 Diagnosis: Rectal Polyp, Biopsy: Hyperplastic polyp. MRV 12/10/2021 1514 Local . 02 Electronically signed: . Chris Miranda MD, PhD, Pathologist NPI- [id number] . 01 Gross description: . RECTAL POLYP: Received in formalin is 1 fragment(s) of montemayor, soft tissue measuring 0.2 x 0.2 x 0.2 cm submitted entirely in 1 cassette(s) /CPE 12/09/2021 1317 Local . 02 Pathologist provided ICD-10: K62.1 . 02 CPT . 967309 Specimen Comment: A courtesy copy of this report has been sent to [phone] Performed at: 01 [facility] [address] [id number] MD Morgan Damon MD Phone: [phone] Performed at: 02 [facility] [address] [place], [place] [id number] MD Funmilayo Sawant MD Phone: [phone]
--- NOTE | 2021-12-08 13:06 | PM.PREOP ---
Pre-operative Note COVID-19 COVID-19 status: Negative Result date/Date tested (Pos, Neg/Pending): 12/08/21 Interval Note History & Physical reviewed/Exam performed by Physician: Yes Changes to H&P: No ASA Class (for procedural sedation): III
--- NOTE | 2021-12-08 13:07 | P.OP.COLON_ITS ---
Operative Date/Time/Diagnoses Date of procedure: 12/08/21 Pre-op diagnosis: See indication and findings Procedure & Clinicians Study performed: Colonoscopy Indications: History of colon cancer and diverticulitis with difficult and failed colonoscopy in the past. Need for follow-up colonoscopy Surgeon: Elise Chua Procedure Notes Procedure in detail: After informed consent was obtained the patient placed in left lateral decubitus position. The video colonoscope was introduced into the rectum and slowly adva nced to cecum without difficulty.. Preparation was good. On slow withdrawal mucosa was carefully examined. The scope was removed. The patient tolerated procedure well. Blood loss none Complications none Sedation mac Findings 1. Sigmoid diverticulosis, [id number]. No evidence of diverticulitis 2. Ileocolonic anastomosis at the hepatic flexure. Anastomosis could be easily passed. No other abnormality. 3. Otherwise negative colonoscopy to anastomosis. This should be more leans last colonoscopy.
== END 2021-12-08 15:20 | disposition home or self-care (01) ==
PROVIDERS: PCP Student in an Organized Health Care Education/Training Program; Referring Provider Internal Medicine Gastroenterology; Visit Provider Internal Medicine Gastroenterology
PROC: 0DJD8ZZ Inspection of Lower Intestinal Tract, Via Natural or Artificial Opening Endoscopic (ICD-10-PCS; CPT 45378; principal; 2021-12-08 14:00)
DX: Z12.11 Encounter for screening for malignant neoplasm of colon (principal); Z85.038 Personal history of other malignant neoplasm of large intestine; Z87.19 Personal history of other diseases of the digestive system; K57.30 Diverticulosis of large intestine without perforation or abscess without bleeding
CPT/HCPCS: G0105; J2704

== ENCOUNTER → 2022-07-18 13:28 | Outpatient (CLI) | payer MEDICARE, SELFPAY ==
--- NOTE | 2022-07-18 13:34 | DI.RAD.S_ITS ---
PROCEDURE: XR HIP W PEL IF DONE RT 2V INDICATIONS: RIGHT HIP PAIN, SOMATIC DYSFUNCTION OF HIP AND SPINE TECHNIQUE: 2 views of the right hip were acquired (AP pelvis and frogleg lateral view of the right hip). COMPARISON: None. FINDINGS: Moderate bilateral hip osteoarthritis with joint space narrowing and marginal osteophytosis. There is some subchondral sclerosis and possibly subchondral cystic change in the right acetabular roof. No acute finding. No suspicious lesion. IMPRESSION: Moderate bilateral hip osteoarthritis. Dictated by: Clyde Gamino M.D. on 07/19/2022 at 9:59 Approved by: Clyde Gamino M.D. on 07/19/2022 at 10:00
--- NOTE | 2022-07-18 13:34 | DI.RAD.S_ITS ---
PROCEDURE: XR LUMBAR SPINE 2-3V INDICATIONS: RIGHT HIP PAIN, SOMATIC DYSFUNCTION OF HIP AND SPINE TECHNIQUE: 3 views of the lumbar spine were acquired. COMPARISON: None. FINDINGS: Normal lumbar vertebral body height and alignment. Disc height loss at L3-L4, L4-L5, and L5-S1 with associated degenerative endplate change and facet hypertrophy. Findings worst at L4-L5. No suspicious lytic or blastic osseous lesion. Mild osteoarthritic changes in the inferior sacroiliac joints. IMPRESSION: [id number] lower lumbar spine degenerative changes. Dictated by: Clyde Gamino M.D. on 07/19/2022 at 9:49 Approved by: Clyde Gamino M.D. on 07/19/2022 at 9:58
== END ==
PROVIDERS: PCP Student in an Organized Health Care Education/Training Program; Referring Provider Family Medicine; Visit Provider Family Medicine
DX: M47.816 Spondylosis without myelopathy or radiculopathy, lumbar region (principal); M16.0 Bilateral primary osteoarthritis of hip; M25.551 Pain in right hip; M99.05 Segmental and somatic dysfunction of pelvic region; M99.03 Segmental and somatic dysfunction of lumbar region
CPT/HCPCS: 72100; 73502

== ENCOUNTER → 2022-12-26 12:43 | Outpatient (CLI) | payer MEDICARE, SELFPAY ==
--- NOTE | 2022-12-26 12:00 | DI.DEXA.S_ITS ---
Indication: osteopenia; Referring Provider: JOSEPHINE BAH Study: Bone densitometry was performed. Exam Date: December 26, 2022 Accession number: [id number] Bone Density: Region BMD T-score Z-score Classification AP Spine(L1, L3, L4) 0.823 -2.1 0.6 Osteopenia Femoral Neck (Left) 0.582 -2.4 -0.1 Osteopenia Total Hip (Left) 0.717 -1.8 0.2 Osteopenia Femoral Neck (Right) 0.600 -2.2 0.1 Osteopenia Total Hip (Right) 0.727 -1.8 0.3 Osteopenia Total Hip Mean 0.722 -1.8 0.3 Osteopenia World Health Organization criteria for BMD impression classify patients as: Normal (T-score at or above -1.0), Osteopenia (T-score between -1.0 and -2.5), or Osteoporosis (T-score at or below -2.5). 10-year Fracture Risk(1): Major Osteoporotic Fracture 17% Hip Fracture 5.8% Reported Risk Factors: [place] (), Neck BMD=0.582, BMI=22.9 (1) FRAX(R) Version 3.08. Fracture probability calculated for an untreated patient. Fracture probability may be lower if the patient has received treatment. Previous Exams: -- Region Exam Age BMD T-score BMD Change BMD Change Date g/cm2 vs Baseline vs Previous -- AP Spine (L1,L3-L4) 12/26/2022 82 0.823 -2.1 -0.057 (-6.5%)# -0.057 (-6.5%)# 12/24/2020 80 0.880 -1.6 Total Hip(Left) 12/26/2022 82 0.717 -1.8 -0.042 (-5.6%)# -0.042 (-5.6%)# 12/24/2020 80 0.760 -1.5 Total Hip(Right) 12/26/2022 82 0.727 -1.8 -0.035 (-4.6%)# -0.035 (-4.6%)# 12/24/2020 80 0.762 -1.5 -- *Denotes significance at 95% confidence level, LSC for AP Spine = 0.022 g/cm2, LSC for Total Hip = 0.027 g/cm2 # Denotes dissimilar scan types or analysis methods Impression: The patient has low bone mass, based on the Left Femoral Neck T-score. The patient has an estimated ten-year risk of hip fracture of 5.8% and an estimated ten-year risk of major fracture of 17%, based on the WHO FRAX algorithm. No significant bone loss was observed. Discussion: BONE DENSITY IS LOW AT ONE OR MORE SKELETAL SITES. THE PATIENT'S BMD AND CLINICAL RISK FACTORS CONTRIBUTE TO THIS PATIENT'S INCREASED RISK OF FRACTURE. This patient's lowest T-score is low at one or more skeletal sites. It meets the World Health Organization's (WHO) criteria for ?low bone mass? (T-score between -1.0 and -2.5). The patient's 10-year risk of hip fracture as calculated by FRAX exceeds the threshold where pharmacological therapy is recommended by the National Osteoporosis Foundation (NOF). However, all treatment decisions require clinical judgment and consideration of individual patient factors, including patient preferences, comorbidities, previous drug use, risk factors not captured in the FRAX model (e.g., frailty, falls, vitamin D deficiency, increased bone turnover, interval significant decline in bone density) and possible under or overestimation of fracture risk by FRAX. The patient should follow a healthful lifestyle (good nutrition with adequate calcium and vitamin D, and appropriate weight-bearing exercise). Follow-Up: Consider a repeat BMD and Vertebral Fracture Assessment (VFA) exam in 2 years or sooner if medically necessary, to reassess this patient's status. Reported by: Shayy RENTERIA M.D. on 12/26/2022 12:08:00 PM.
--- NOTE | 2022-12-26 12:45 | DI.MG.S_ITS ---
UNILATERAL LEFT DIGITAL SCREENING MAMMOGRAM 3D/2D WITH CAD POST MASTECTOMY: 12/26/2022 CLINICAL: Routine screening. Personal history of right breast cancer. Family history of breast cancer. Comparison is made to exams dated: 12/01/2021 mammogram, 11/19/2020 mammogram, and 10/03/2019 mammogram - [facility]. The left breast is almost entirely fatty (category a/<25% glandular tissue). Current study was also evaluated with a Computer Aided Detection (CAD) system. There are benign post operative findings in the left breast. No significant masses, calcifications, or other findings are seen in the breast. There has been no significant interval change. IMPRESSION: BENIGN There is no mammographic evidence of malignancy. A 1 year screening mammogram is recommended. This exam was interpreted at Station ID: [id number]. NOTE: For mammograms, a report in lay terms will be sent to the patient. Approximately 15% of breast malignancies will not be visualized mammographically. In the management of a palpable breast mass, a negative mammogram must not discourage biopsy of a clinically suspicious lesion. Electronically Signed By: Akbar cox/mague:12/26/2022 13:24:07 letter sent: Normal Exam ACR BI-RADS Category 2: Benign Finding(s) 3342F
== END ==
PROVIDERS: PCP Nurse Practitioner; Referring Provider Nurse Practitioner; Visit Provider Nurse Practitioner
DX: Z85.3 Personal history of malignant neoplasm of breast (principal); M85.852 Other specified disorders of bone density and structure, left thigh; Z78.0 Asymptomatic menopausal state; Z12.31 Encounter for screening mammogram for malignant neoplasm of breast; Z80.3 Family history of malignant neoplasm of breast
CPT/HCPCS: 77063; 77067; 77080

== ENCOUNTER → 2022-12-28 11:41 | Outpatient (CLI) | payer MEDICARE, SELFPAY | PROVIDERS: PCP Nurse Practitioner; Visit Provider Specialist | DX: R30.0 Dysuria (principal) | CPT/HCPCS: 87077; 87086; 87186 ==

== ENCOUNTER → 2023-03-03 08:26 | Outpatient (CLI) | payer MEDICARE, SELFPAY ==
[2023-03-03 09:47] LABS: Blood Urea Nitrogen 13 mg/dL (7-17); Calcium 9.7 mg/dL (8.4-10.2); Carbon Dioxide 32 mmol/L (22-32); Chloride 103 mmol/L (98-107); Estimated Glomerular Filt Rate > 60 mL/min (>60); Glucose 95 mg/dL (80-110); HEMOLYSIS < 15 (0-50); Potassium 3.7 mmol/L (3.4-5.1); Sodium 140 mmol/L (137-145)
== END ==
PROVIDERS: Family Provider Nurse Practitioner; PCP Nurse Practitioner; Referring Provider Nurse Practitioner; Visit Provider Nurse Practitioner
DX: M85.80 Other specified disorders of bone density and structure, unspecified site (principal); Z01.812 Encounter for preprocedural laboratory examination; Z78.0 Asymptomatic menopausal state
CPT/HCPCS: 36415; 80048

== ENCOUNTER 2023-04-06 11:45 | Outpatient (RCR) | payer MEDICARE, SELFPAY ==
--- NOTE | 2023-03-09 16:38 | PT.OIE ---
Current Diagnoses Pain in left leg (03/09/23) Unsteadiness on feet (03/09/23) Other symptoms and signs involving the musculoskeletal system (03/09/23) Past Medical History (Last Reviewed 02/15/23 @ 14:45 by USMAN Arguelles) Breast cancer (2000) Cataracts, bilateral Colorectal cancer (2007) Duodenum ulcer Gastric ulcer Glaucoma, left eye History of breast cancer (~1999) History of colon cancer (~2007) Osteopenia after menopause Partial blindness Vertigo Past Surgical History (Last Reviewed 02/15/23 @ 14:45 by USMAN Arguelles) H/O right hemicolectomy (2007) H/O sinus surgery History of bladder suspension procedure (2003) Status post appendectomy Status post partial mastectomy (2000) Status post tonsillectomy and adenoidectomy (1946) Status post vaginal hysterectomy (2003) Visit Care Team Role Provider Type USMAN Arguelles Attending Provider Advanced De Icer Finisher Family Provider Primary Care Provider Referring Provider Specialty: [facility] Practice Address: [address] [place] [address], [facility] Email: [email or web address] Physical Therapy Initial Evaluation PT-OP-A Visit Information Start: 03/09/23 12:59 Freq: Status: Active Protocol: Document 03/09/23 13:00 ES (Rec: 03/09/23 13:48 ES [id number]) Out-Patient Physical Therapy Visit Information Visit Information Visit Type Initial Evaluation Visit Start Time 13:00 Visit Stop Time 13:48 Total Visit Minutes 48 Visit Number 1 Evaluation Information Evaluation Date 03/09/23 PT-OP-B Current Condition Start: 03/09/23 12:59 Freq: Status: Active Protocol: Document 03/09/23 13:00 ES (Rec: 03/09/23 13:48 ES [id number]) Current Condition History of Current Condition Current Complaints LLE weakness, cramping, decreased balance History of Current Condition Patient reports she was having some pain in her hip recently but that has gotten better since having some chiropractor treatments. She has still been having cramping and some weakness in her L leg for a few months. She has had a couple falls in the past year onto her L side though says it didn't affect her pain in her L hip. She reports the leg sometimes gives out on her when she's standing or walking . Has been told she should consider walking with a cane but doesn't use it much. Sees a chiropractor once/month for her neck/shoulders. Walks her dog twice a day for about a mile. 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 Treatment Goals Patient/Caregiver Goals To have stronger bones, to have better balance and strength. PT-OP-C Subjective Start: 03/09/23 12:59 Freq: Status: Active Protocol: Document 03/09/23 13:00 ES (Rec: 03/09/23 13:48 ES [id number]) Patient Questionnaires Lower Extremity Functional Scale LEFS Score 53 LEFS Impairment 20 to 39% Impaired (Score 48- 62) OP-PT Pain Assessment Location LLE Pain Location Details L hip Intensity 2 Scale Used Numeric (0 - 10) Patient Stated Pain Goal Patient stated that pain is not her concern at this time. PT-OP-D Balance Start: 03/09/23 12:59 Freq: Status: Active Protocol: Document 03/09/23 13:00 ES (Rec: 03/09/23 13:48 ES [id number]) Balance Tests Cota Balance Test Cota Balance Test Score 51 Cota Impairment Rating 1 to 19% Impaired (Score 45-55 ) Single Limb Standing Single Limb- Right 2 Single Limb- Left 2 Other Other Balance Tests Performed 4-stage balance test = PT-OP-E Functional Tests Start: 03/09/23 12:59 Freq: Status: Active Protocol: Document 03/09/23 13:00 ES (Rec: 03/09/23 13:48 ES [id number]) Functional Tests 30 Second Sit to Stand Test Score 12 Comments Norm for gender/age = 9-14 Functional Gait Assessment Score 24 (22 or less = increased fall risk) Functional Gait Assessment Impairment 20 to <40% Impaired (Score 19- Rating 24) PT-OP-G Mobility & Gait Start: 03/09/23 12:59 Freq: Status: Active Protocol: Document 03/09/23 13:00 ES (Rec: 03/09/23 16:38 ES [id number]) OP Gait Assessment Factors Limiting Gait Function Factors Limiting Gait Function Decreased Strength Comments Gait Comments Ambulates with toe-out pattern , hip add, hip drop B, decreased heel-toe pattern, and decreased foot clearance. PT-OP-J Posture/Palpation/Skin Start: 03/09/23 12:59 Freq: Status: Active Protocol: Document 03/09/23 13:00 ES (Rec: 03/09/23 16:38 ES [id number]) Posture Evaluation Comments Posture Comments B genu varum with functional genu valgum B with squat/STS. Stands with toes out R>L. PT-OP-K Range of Motion Start: 03/09/23 12:59 Freq: Status: Active Protocol: Document 03/09/23 13:00 ES (Rec: 03/09/23 16:38 ES [id number]) Hip Goniometric Range of Motion Hip Left Hip ROM WFL Yes Testing Position Supine Ankle and Foot Goniometric Range of Motion Ankle and Foot ROM Limitations Comments B ankle DF limited to ~5 degrees PT-OP-M Strength Start: 03/09/23 12:59 Freq: Status: Active Protocol: Document 03/09/23 13:00 ES (Rec: 03/09/23 16:38 ES [id number]) Hip Strength Hip Manual Muscle Testing Right Abduction 3- Fair- Left Abduction 3- Fair- PT-OP-T Assessment and Plan Start: 03/09/23 12:59 Freq: Status: Active Protocol: Document 03/09/23 13:00 ES (Rec: 03/09/23 16:38 ES [id number]) Physical Therapy Assessment Rehab Potential Rehabilitation Potential Excellent Evaluation Complexity Number of Personal Factors/Comorbidities 1-2 Number of Body Systems Impaired 1-2 Clinical Presentation at Evaluation Stable Impairments Impairments Balance,Gait,ROM,Strength Goals Two Impairment Balance Custodial Goal (LTG) Patient will improve 4-stage balance test score to 10/10/10 /5 indicating decreased risk for falls. LTG Duration 4 weeks (04/06/23) One Impairment Strength/balance/ROM Medical Reimbursement Manager Goal (LTG) Patient will be indep with HEP and/or community fitness class to address impairments. LTG Duration 4 weeks (04/06/23) Assessment Summary Assessment Patient is a 82 year old female referred to PT for L hip pain. She currently is having minimal hip pain, though does endorse cramping in her calf and decreased balance. She presents today with general weakness in LE's as well as specific weakness in hip abductors contributing to abnormal gait pattern and decreased balance. She was within normal for age/gender with functional testing today with exception of 4-stage balance test where she demonstrated increased fall risk with the inability to perform tandem stance for 10 seconds, and had poor balance with SLS. She would benefit from skilled therapy to instruct in appropriate exercises to address hip strength, calf flexibility, and balance as well as educate on appropriate community resources for fitness in order to reduce her fall risk. Physical Therapy Plan Frequency and Duration Frequency of Treatment 1x/Week Duration of treatment (weeks) 4 Plan of Care Start Date 03/09/23 Plan of Care End Date 04/06/23 Therapeutic Interventions Therapeutic Interventions Balance Training,Home Exercise Program,Neuromuscular Re- education,Patient/Caregiver Education,Self-Care/Home Management,Therapeutic Activities,Therapeutic Exercises Next Visit Focus/Plan Next Note Type Treatment Note Next Visit Plan Initiate HEP for hip strength, balance. Educate on community fitness classes/resources.
--- NOTE | 2023-03-09 16:39 | PT.OPPOC ---
Physical, Occupational & Speech Therapy At [facility] Current Diagnoses Pain in left leg (03/09/23) Unsteadiness on feet (03/09/23) Other symptoms and signs involving the musculoskeletal system (03/09/23) Visit Care Team Role Provider Type USMAN Arguelles Attending Provider Advanced Printed Circuit Boards Laminator Family Provider Primary Care Provider Referring Provider Specialty: Family Practice Address: [address] [place] [address], [facility] Email: [email or web address] Plan Of Care PT-OP-T Assessment and Plan Start: 03/09/23 12:59 Freq: Status: Active Protocol: Document 03/09/23 13:00 ES (Rec: 03/09/23 16:38 ES [id number]) Physical Therapy Assessment Rehab Potential Rehabilitation Potential Excellent Evaluation Complexity Number of Personal Factors/Comorbidities 1-2 Number of Body Systems Impaired 1-2 Clinical Presentation at Evaluation Stable Impairments Impairments Balance,Gait,ROM,Strength Goals Two Impairment Balance Neuro Psych Sales Specialist Goal (LTG) Patient will improve 4-stage balance test score to 10/10/10 /5 indicating decreased risk for falls. LTG Duration 4 weeks (04/06/23) One Impairment Strength/balance/ROM Neuro Psych Sales Specialist Goal (LTG) Patient will be indep with HEP and/or community fitness class to address impairments. LTG Duration 4 weeks (04/06/23) Assessment Summary Assessment Patient is a 82 year old female referred to PT for L hip pain. She currently is having minimal hip pain, though does endorse cramping in her calf and decreased balance. She presents today with general weakness in LE's as well as specific weakness in hip abductors contributing to abnormal gait pattern and decreased balance. She was within normal for age/gender with functional testing today with exception of 4-stage balance test where she demonstrated increased fall risk with the inability to perform tandem stance for 10 seconds, and had poor balance with SLS. She would benefit from skilled therapy to instruct in appropriate exercises to address hip strength, calf flexibility, and balance as well as educate on appropriate community resources for fitness in order to reduce her fall risk. Physical Therapy Plan Frequency and Duration Frequency of Treatment 1x/Week Duration of treatment (weeks) 4 Plan of Care Start Date 03/09/23 Plan of Care End Date 04/06/23 Therapeutic Interventions Therapeutic Interventions Balance Training,Home Exercise Program,Neuromuscular Re- education,Patient/Caregiver Education,Self-Care/Home Management,Therapeutic Activities,Therapeutic Exercises Next Visit Focus/Plan Next Note Type Treatment Note Next Visit Plan Initiate HEP for hip strength, balance. Educate on community fitness classes/resources. Plan of Care Dates Plan of Care Start Date 03/09/23 Plan of Care End Date 04/06/23 Electronically Signed by: Geena Raymond, PT 03/09/23 9442 If you are in agreement with this Plan of Care, please return a signed and dated copy. I have reviewed this Plan of Care and certify that the skilled therapy services above are required to meet the patient?s needs. Physician Signature Date Printed Name and Credentials Clinical Instructor Signature Printed Name and Credentials
--- NOTE | 2023-03-20 09:17 | PT.OTN ---
Current Diagnoses Pain in left leg (03/20/23) Unsteadiness on feet (03/20/23) Other symptoms and signs involving the musculoskeletal system (03/20/23) Physical Therapy Treatment Note PT-OP-A Visit Information Start: 03/09/23 12:59 Freq: Status: Active Protocol: Document 03/20/23 08:32 ES (Rec: 03/20/23 09:17 ES [id number]) Out-Patient Physical Therapy Visit Information Visit Information Visit Type Treatment Note Visit Start Time 08:32 Visit Stop Time 09:15 Total Visit Minutes 43 Visit Number 2 Evaluation Information Evaluation Date 03/09/23 PT-OP-B Current Condition Start: 03/09/23 12:59 Freq: Status: Active Protocol: Document 03/09/23 13:00 ES (Rec: 03/09/23 13:48 ES [id number]) Current Condition History of Current Condition Current Complaints LLE weakness, cramping, decreased balance History of Current Condition Patient reports she was having some pain in her hip recently but that has gotten better since having some chiropractor treatments. She has still been having cramping and some weakness in her L leg for a few months. She has had a couple falls in the past year onto her L side though says it didn't affect her pain in her L hip. She reports the leg sometimes gives out on her when she's standing or walking . Has been told she should consider walking with a cane but doesn't use it much. Sees a chiropractor once/month for her neck/shoulders. Walks her dog twice a day for about a mile. 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 Treatment Goals Patient/Caregiver Goals To have stronger bones, to have better balance and strength. PT-OP-C Subjective Start: 03/09/23 12:59 Freq: Status: Active Protocol: Document 03/20/23 08:32 ES (Rec: 03/20/23 09:17 ES [id number]) OP-PT Subjective Patient Comments Patient Comments Patient reported that she's been having cramping in her calves in the mornings. Has been doing a lot of work in her garden and is having some wrist soreness. Has been having some sharp pinching pain in B hips now that subsides quickly. Just opened her above ground pool for the summer. PT-OP-D Balance Start: 03/09/23 12:59 Freq: Status: Active Protocol: Document 03/09/23 13:00 ES (Rec: 03/09/23 13:48 ES [id number]) Balance Tests Cota Balance Test Cota Balance Test Score 51 Cota Impairment Rating 1 to 19% Impaired (Score 45-55 ) Single Limb Standing Single Limb- Right 2 Single Limb- Left 2 Other Other Balance Tests Performed 4-stage balance test = PT-OP-E Functional Tests Start: 03/09/23 12:59 Freq: Status: Active Protocol: Document 03/09/23 13:00 ES (Rec: 03/09/23 13:48 ES [id number]) Functional Tests 30 Second Sit to Stand Test Score 12 Comments Norm for gender/age = 9-14 Functional Gait Assessment Score 24 (22 or less = increased fall risk) Functional Gait Assessment Impairment 20 to <40% Impaired (Score 19- Rating 24) PT-OP-G Mobility & Gait Start: 03/09/23 12:59 Freq: Status: Active Protocol: Document 03/09/23 13:00 ES (Rec: 03/09/23 16:38 ES [id number]) OP Gait Assessment Factors Limiting Gait Function Factors Limiting Gait Function Decreased Strength Comments Gait Comments Ambulates with toe-out pattern , hip add, hip drop B, decreased heel-toe pattern, and decreased foot clearance. PT-OP-J Posture/Palpation/Skin Start: 03/09/23 12:59 Freq: Status: Active Protocol: Document 03/09/23 13:00 ES (Rec: 03/09/23 16:38 ES [id number]) Posture Evaluation Comments Posture Comments B genu varum with functional genu valgum B with squat/STS. Stands with toes out R>L. PT-OP-K Range of Motion Start: 03/09/23 12:59 Freq: Status: Active Protocol: Document 03/09/23 13:00 ES (Rec: 03/09/23 16:38 ES [id number]) Hip Goniometric Range of Motion Hip Left Hip ROM WFL Yes Testing Position Supine Ankle and Foot Goniometric Range of Motion Ankle and Foot ROM Limitations Comments B ankle DF limited to ~5 degrees PT-OP-M Strength Start: 03/09/23 12:59 Freq: Status: Active Protocol: Document 03/09/23 13:00 ES (Rec: 03/09/23 16:38 ES [id number]) Hip Strength Hip Manual Muscle Testing Right Abduction 3- Fair- Left Abduction 3- Fair- PT-OP-Q Treatments Start: 03/09/23 12:59 Freq: Status: Active Protocol: Document 03/20/23 08:32 ES (Rec: 03/20/23 09:17 ES [id number]) Cardio Equipment Recumbent Elliptical (BiodNutrinia) Duration (Minutes) 7 Resistance 4 Seat Position 5 Therapeutic Exercises Supine Exercises Bridge Reps/Minutes 2x10 Hip add Side bilateral Equipment Used towel roll Reps/Minutes [id number] Comments Isometric (HEP) BKFO Side bilateral Resistance L2 band Reps/Minutes 2x10 Comments (HEP) Standing Exercises Calf stretch Side bilateral Equipment Used wall Reps/Minutes 3x30s Comments (HEP) Calf raises Side bilateral Equipment Used Stair Reps/Minutes 2x10 Comments (HEP) Self-Care/Home Management Treatment Education Other Education Patient educated on community resources for exercise and provided with printed schedule for [employer] fitness/dance classes. Education on beneficial exercises for the pool. PT-OP-T Assessment and Plan Start: 03/09/23 12:59 Freq: Status: Active Protocol: Document 03/20/23 08:32 ES (Rec: 03/20/23 09:17 ES [id number]) Physical Therapy Assessment Assessment Summary Assessment Patient tolerated initiation of strengthening ex's for hips and calves without problem. She was educated on community resources for balance/fitness classes. She was also educated on appropriate pool exercises to do at home. She demonstrated good understanding of HEP for ex's performed today. She will benefit from further strength and balance progression to improve balance confidence and hip stability. Physical Therapy Plan Next Visit Focus/Plan Next Note Type Treatment Note Next Visit Plan Progress hip strength/ stabilization and balance ex's . Provide handout on pool ex's as needed.
--- NOTE | 2023-03-27 10:01 | PT.OTN ---
Current Diagnoses Pain in left leg (03/27/23) Unsteadiness on feet (03/27/23) Other symptoms and signs involving the musculoskeletal system (03/27/23) Physical Therapy Treatment Note PT-OP-A Visit Information Start: 03/09/23 12:59 Freq: Status: Active Protocol: Document 03/27/23 09:30 ES (Rec: 03/27/23 10:01 ES [id number]) Out-Patient Physical Therapy Visit Information Visit Information Visit Type Treatment Note Visit Start Time 09:30 Visit Stop Time 09:59 Total Visit Minutes 29 Visit Number 3 Evaluation Information Evaluation Date 03/09/23 PT-OP-B Current Condition Start: 03/09/23 12:59 Freq: Status: Active Protocol: Document 03/09/23 13:00 ES (Rec: 03/09/23 13:48 ES [id number]) Current Condition History of Current Condition Current Complaints LLE weakness, cramping, decreased balance History of Current Condition Patient reports she was having some pain in her hip recently but that has gotten better since having some chiropractor treatments. She has still been having cramping and some weakness in her L leg for a few months. She has had a couple falls in the past year onto her L side though says it didn't affect her pain in her L hip. She reports the leg sometimes gives out on her when she's standing or walking . Has been told she should consider walking with a cane but doesn't use it much. Sees a chiropractor once/month for her neck/shoulders. Walks her dog twice a day for about a mile. 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 Treatment Goals Patient/Caregiver Goals To have stronger bones, to have better balance and strength. PT-OP-C Subjective Start: 03/09/23 12:59 Freq: Status: Active Protocol: Document 03/27/23 09:30 ES (Rec: 03/27/23 10:01 ES [id number]) OP-PT Subjective Patient Comments Patient Comments Patient arrived late to her appt today. Patient stated that she has been getting worse cramps in her calves in the mornings the past 2 days. Has been sitting more in the evenings watching TV. Has gotten in her pool to swim and tried some of the balance exercises and they were challenging. PT-OP-D Balance Start: 03/09/23 12:59 Freq: Status: Active Protocol: Document 03/09/23 13:00 ES (Rec: 03/09/23 13:48 ES [id number]) Balance Tests Cota Balance Test Cota Balance Test Score 51 Cota Impairment Rating 1 to 19% Impaired (Score 45-55 ) Single Limb Standing Single Limb- Right 2 Single Limb- Left 2 Other Other Balance Tests Performed 4-stage balance test = PT-OP-E Functional Tests Start: 03/09/23 12:59 Freq: Status: Active Protocol: Document 03/09/23 13:00 ES (Rec: 03/09/23 13:48 ES [id number]) Functional Tests 30 Second Sit to Stand Test Score 12 Comments Norm for gender/age = 9-14 Functional Gait Assessment Score 24 (22 or less = increased fall risk) Functional Gait Assessment Impairment 20 to <40% Impaired (Score 19- Rating 24) PT-OP-G Mobility & Gait Start: 03/09/23 12:59 Freq: Status: Active Protocol: Document 03/09/23 13:00 ES (Rec: 03/09/23 16:38 ES [id number]) OP Gait Assessment Factors Limiting Gait Function Factors Limiting Gait Function Decreased Strength Comments Gait Comments Ambulates with toe-out pattern , hip add, hip drop B, decreased heel-toe pattern, and decreased foot clearance. 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 Stands with toes out R>L. PT-OP-K Range of Motion Start: 03/09/23 12:59 Freq: Status: Active Protocol: Document 03/09/23 13:00 ES (Rec: 03/09/23 16:38 ES [id number]) Hip Goniometric Range of Motion Hip Left Hip ROM WFL Yes Testing Position Supine Ankle and Foot Goniometric Range of Motion Ankle and Foot ROM Limitations Comments B ankle DF limited to ~5 degrees PT-OP-M Strength Start: 03/09/23 12:59 Freq: Status: Active Protocol: Document 03/09/23 13:00 ES (Rec: 03/09/23 16:38 ES [id number]) Hip Strength Hip Manual Muscle Testing Right Abduction 3- Fair- Left Abduction 3- Fair- PT-OP-Q Treatments Start: 03/09/23 12:59 Freq: Status: Active Protocol: Document 03/27/23 09:30 ES (Rec: 03/27/23 10:01 ES [id number]) Cardio Equipment Recumbent Elliptical (Biodex) Duration (Minutes) 5 Resistance 3 Seat Position 5 Therapeutic Exercises Sitting Exercises STS Reps/Minutes 2x12 Neuro Re-Education Treatment Balance Activities SLS Surface Firm Equipment rail Reps/Duration 3x20s Semi-tandem Surface Firm Equipment rail Reps/Duration 2x30s PT-OP-T Assessment and Plan Start: 03/09/23 12:59 Freq: Status: Active Protocol: Document 03/27/23 09:30 ES (Rec: 03/27/23 10:01 ES [id number]) Physical Therapy Assessment Goals Two Impairment Balance Orthodontist Small Business Owner Goal (LTG) Patient will improve 4-stage balance test score to 10/10/10 /5 indicating decreased risk for falls. LTG Duration 4 weeks (04/06/23) One Impairment Strength/balance/ROM Orthodontist Small Business Owner Goal (LTG) Patient will be indep with HEP and/or community fitness class to address impairments. LTG Duration 4 weeks (04/06/23) Assessment Summary Assessment Patient was challenged with semi-tandem and SLS, requiring BUE support and fatigued after 20sec. She will benefit from further strengthening and balance training to improve safety with functional mobility in order to reduce fall risk. Physical Therapy Plan Next Visit Focus/Plan Next Note Type Treatment Note Next Visit Plan Review entire HEP. Progress balance training.
--- NOTE | 2023-04-06 12:32 | PT.OTN ---
Current Diagnoses Pain in left leg (04/06/23) Unsteadiness on feet (04/06/23) Other symptoms and signs involving the musculoskeletal system (04/06/23) Physical Therapy Treatment Note PT-OP-A Visit Information Start: 03/09/23 12:59 Freq: Status: Active Protocol: Document 04/06/23 11:30 ES (Rec: 04/06/23 12:32 ES [id number]) Out-Patient Physical Therapy Visit Information Visit Information Visit Type Discharge Summary Visit Start Time 11:30 Visit Stop Time 12:18 Total Visit Minutes 48 Visit Number 4 Evaluation Information Evaluation Date 03/09/23 PT-OP-B Current Condition Start: 03/09/23 12:59 Freq: Status: Active Protocol: Document 03/09/23 13:00 ES (Rec: 03/09/23 13:48 ES [id number]) Current Condition History of Current Condition Current Complaints LLE weakness, cramping, decreased balance History of Current Condition Patient reports she was having some pain in her hip recently but that has gotten better since having some chiropractor treatments. She has still been having cramping and some weakness in her L leg for a few months. She has had a couple falls in the past year onto her L side though says it didn't affect her pain in her L hip. She reports the leg sometimes gives out on her when she's standing or walking . Has been told she should consider walking with a cane but doesn't use it much. Sees a chiropractor once/month for her neck/shoulders. Walks her dog twice a day for about a mile. 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 Treatment Goals Patient/Caregiver Goals To have stronger bones, to have better balance and strength. PT-OP-C Subjective Start: 03/09/23 12:59 Freq: Status: Active Protocol: Document 04/06/23 11:30 ES (Rec: 04/06/23 12:32 ES [id number]) OP-PT Subjective Patient Comments Patient Comments Patient reports that she feels like her balance has gotten a little better since starting PT. Still having cramping in her lower legs that is better some days and worse some days, isn't able to correlate it to anything. Has been doing her exercises at home and is having less trouble with semi- tandem stance. Patient Reported Progress Improving Patient Questionnaires ABC- Activity Specific Balance Confidence Scale ABC Score 86% ABC Functional Impairment 1 to <20% Impaired (Score 81- 99) Lower Extremity Functional Scale LEFS Score 50 LEFS Impairment 20 to 39% Impaired (Score 48- 62) PT-OP-D Balance Start: 03/09/23 12:59 Freq: Status: Active Protocol: Document 04/06/23 11:30 ES (Rec: 04/06/23 12:32 ES [id number]) Balance Tests Single Limb Standing Single Limb- Right 3 Single Limb- Left 5 Other Other Balance Tests Performed 4-stage balance test = Cota Balance Assessment Evaluation Sitting to Standing Ability Independent w/out Hands Unsupported Stance Safely- 2 minutes Sitting Unsupported, Feet on Floor Safely- 2 minutes Standing to Sitting Ability Safely, Minimal Hand Use Transfer Ability Safely, Minimal Hand Use Unsupported Stance- Eyes Closed Safely, 10 seconds Unsupported Stance- Eyes Open Independent, 1 minute Reaching Forward Standing Confidently, 10 inches Pick- Up Object From Floor Independent/Safe Look Behind Shoulder - Standing Shifts Weight Well Turning 360 Degrees Turns Bilateral, < 4 secs Unsupported Stance, Alternating Feet on (I)- 8 Steps in 20 secs Stair Unsupported Tandem Stance Holds Tandem- 30 seconds Unilateral Leg Stance Lifts Leg/Unable to Hold Total Score Cota Total Score (out of 56 points) 52 Cota Impairment Rating 1 to 19% Impaired (Score 45-55 ) PT-OP-E Functional Tests Start: 03/09/23 12:59 Freq: Status: Active Protocol: Document 04/06/23 11:30 ES (Rec: 04/06/23 12:32 ES [id number]) Functional Tests 30 Second Sit to Stand Test Score 14 Comments Normal for age Functional Gait Assessment Score 26 Functional Gait Assessment Impairment 1 to <20% Impaired (Score 25- Rating 29) PT-OP-G Mobility & Gait Start: 03/09/23 12:59 Freq: Status: Active Protocol: Document 03/09/23 13:00 ES (Rec: 03/09/23 16:38 ES [id number]) OP Gait Assessment Factors Limiting Gait Function Factors Limiting Gait Function Decreased Strength Comments Gait Comments Ambulates with toe-out pattern , hip add, hip drop B, decreased heel-toe pattern, and decreased foot clearance. 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 Stands with toes out R>L. PT-OP-K Range of Motion Start: 03/09/23 12:59 Freq: Status: Active Protocol: Document 03/09/23 13:00 ES (Rec: 03/09/23 16:38 ES [id number]) Hip Goniometric Range of Motion Hip Left Hip ROM WFL Yes Testing Position Supine Ankle and Foot Goniometric Range of Motion Ankle and Foot ROM Limitations Comments B ankle DF limited to ~5 degrees PT-OP-M Strength Start: 03/09/23 12:59 Freq: Status: Active Protocol: Document 03/09/23 13:00 ES (Rec: 03/09/23 16:38 ES [id number]) Hip Strength Hip Manual Muscle Testing Right Abduction 3- Fair- Left Abduction 3- Fair- PT-OP-Q Treatments Start: 03/09/23 12:59 Freq: Status: Active Protocol: Document 04/06/23 11:30 ES (Rec: 04/06/23 12:32 ES [id number]) Neuro Re-Education Treatment Balance Activities Tandem stance Details B SLS Comments Performed with minimum DERRICK support for up to 30 seconds; instructed to progress from semi-tandem to tandem stance with HEP. Other Activities Balance testing Details Cota, 4-stage balance, Functional Gait Assessment, 30sSTS Comments See details above PT-OP-T Assessment and Plan Start: 03/09/23 12:59 Freq: Status: Active Protocol: Document 04/06/23 11:30 ES (Rec: 04/06/23 12:32 ES [id number]) Physical Therapy Assessment Impairments Impairments Balance,Gait,ROM,Strength Goals Two Impairment Balance [facility] Goal (LTG) Patient will improve 4-stage balance test score to 10/10/10 /5 indicating decreased risk for falls. LTG Duration 4 weeks (04/06/23) - not met One Impairment Strength/balance/ROM [employer] Goal (LTG) Patient will be indep with HEP and/or community fitness class to address impairments. LTG Duration 4 weeks (04/06/23) - met Progress Towards Goals Progress Towards Goals Progressing Toward Goals Assessment Summary Assessment Patient presents for her 4th PT visit today. She demonstrates improvement in Cota Balance, Functional Gait Assessment, and 30sSTS. She had no significant change in 4 -stage balance test, however demonstrates improved ability to perform tandem and SLS with decreased UE support. She is at low risk for falls and would benefit from transition to community-based exercise program and home balance training program to improve and maintain strength and balance in order to reduce her risk of decline. Patient's HEP was reviewed and adjusted today using her handouts. She is appropriate to d/c from skilled PT at this time. Physical Therapy Plan Discharge Physical Therapy Discharge Reasons Plateau in Progress Discharge Comments No further skilled PT needed.
--- NOTE | 2023-04-06 12:36 | PT.OPDS ---
Current Diagnoses Pain in left leg (04/06/23) Unsteadiness on feet (04/06/23) Other symptoms and signs involving the musculoskeletal system (04/06/23) Visit Care Team Role Provider Type USMAN [employer] Attending Provider [employer] Family Provider Primary Care Provider Referring Provider Specialty: Family Practice Address: [address] [place] [address], [id number] Email: [email or web address] Visit Number Visit Number 4 Discharge Summary PT-OP-B Current Condition Start: 03/09/23 12:59 Freq: Status: Active Protocol: Document 03/09/23 13:00 ES (Rec: 03/09/23 13:48 ES [id number]) Current Condition History of Current Condition Current Complaints LLE weakness, cramping, decreased balance History of Current Condition Patient reports she was having some pain in her hip recently but that has gotten better since having some chiropractor treatments. She has still been having cramping and some weakness in her L leg for a few months. She has had a couple falls in the past year onto her L side though says it didn't affect her pain in her L hip. She reports the leg sometimes gives out on her when she's standing or walking . Has been told she should consider walking with a cane but doesn't use it much. Sees a chiropractor once/month for her neck/shoulders. Walks her dog twice a day for about a mile. 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 Treatment Goals Patient/Caregiver Goals To have stronger bones, to have better balance and strength. PT-OP-C Subjective Start: 03/09/23 12:59 Freq: Status: Active Protocol: Document 04/06/23 11:30 ES (Rec: 04/06/23 12:32 ES [id number]) OP-PT Subjective Patient Comments Patient Comments Patient reports that she feels like her balance has gotten a little better since starting PT. Still having cramping in her lower legs that is better some days and worse some days, isn't able to correlate it to anything. Has been doing her exercises at home and is having less trouble with semi- tandem stance. Patient Reported Progress Improving Patient Questionnaires ABC- Activity Specific Balance Confidence Scale ABC Score 86% ABC Functional Impairment 1 to <20% Impaired (Score 81- 99) Lower Extremity Functional Scale LEFS Score 50 LEFS Impairment 20 to 39% Impaired (Score 48- 62) PT-OP-D Balance Start: 03/09/23 12:59 Freq: Status: Active Protocol: Document 04/06/23 11:30 ES (Rec: 04/06/23 12:32 ES [id number]) Balance Tests Single Limb Standing Single Limb- Right 3 Single Limb- Left 5 Other Other Balance Tests Performed 4-stage balance test = Cota Balance Assessment Evaluation Sitting to Standing Ability Independent w/out Hands Unsupported Stance Safely- 2 minutes Sitting Unsupported, Feet on Floor Safely- 2 minutes Standing to Sitting Ability Safely, Minimal Hand Use Transfer Ability Safely, Minimal Hand Use Unsupported Stance- Eyes Closed Safely, 10 seconds Unsupported Stance- Eyes Open Independent, 1 minute Reaching Forward Standing Confidently, 10 inches Pick- Up Object From Floor Independent/Safe Look Behind Shoulder - Standing Shifts Weight Well Turning 360 Degrees Turns Bilateral, < 4 secs Unsupported Stance, Alternating Feet on (I)- 8 Steps in 20 secs Stair Unsupported Tandem Stance Holds Tandem- 30 seconds Unilateral Leg Stance Lifts Leg/Unable to Hold Total Score Cota Total Score (out of 56 points) 52 Cota Impairment Rating 1 to 19% Impaired (Score 45-55 ) PT-OP-E Functional Tests Start: 03/09/23 12:59 Freq: Status: Active Protocol: Document 04/06/23 11:30 ES (Rec: 04/06/23 12:32 ES [id number]) Functional Tests 30 Second Sit to Stand Test Score 14 Comments Normal for age Functional Gait Assessment Score 26 Functional Gait Assessment Impairment 1 to <20% Impaired (Score 25- Rating 29) PT-OP-G Mobility & Gait Start: 03/09/23 12:59 Freq: Status: Active Protocol: Document 03/09/23 13:00 ES (Rec: 03/09/23 16:38 ES [id number]) OP Gait Assessment Factors Limiting Gait Function Factors Limiting Gait Function Decreased Strength Comments Gait Comments Ambulates with toe-out pattern , hip add, hip drop B, decreased heel-toe pattern, and decreased foot clearance. 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 Stands with toes out R>L. PT-OP-K Range of Motion Start: 03/09/23 12:59 Freq: Status: Active Protocol: Document 03/09/23 13:00 ES (Rec: 03/09/23 16:38 ES [id number]) Hip Goniometric Range of Motion Hip Left Hip ROM WFL Yes Testing Position Supine Ankle and Foot Goniometric Range of Motion Ankle and Foot ROM Limitations Comments B ankle DF limited to ~5 degrees PT-OP-M Strength Start: 03/09/23 12:59 Freq: Status: Active Protocol: Document 03/09/23 13:00 ES (Rec: 03/09/23 16:38 ES [id number]) Hip Strength Hip Manual Muscle Testing Right Abduction 3- Fair- Left Abduction 3- Fair- PT-OP-T Assessment and Plan Start: 03/09/23 12:59 Freq: Status: Active Protocol: Document 04/06/23 11:30 ES (Rec: 04/06/23 12:32 ES [id number]) Physical Therapy Assessment Impairments Impairments Balance,Gait,ROM,Strength Goals Two Impairment Balance Senior Living Goal (LTG) Patient will improve 4-stage balance test score to 10/10/10 /5 indicating decreased risk for falls. LTG Duration 4 weeks (04/06/23) - not met One Impairment Strength/balance/ROM Psychotherapist Counselor Goal (LTG) Patient will be indep with HEP and/or community fitness class to address impairments. LTG Duration 4 weeks (04/06/23) - met Progress Towards Goals Progress Towards Goals Progressing Toward Goals Assessment Summary Assessment Patient presents for her 4th PT visit today. She demonstrates improvement in Cota Balance, Functional Gait Assessment, and 30sSTS. She had no significant change in 4 -stage balance test, however demonstrates improved ability to perform tandem and SLS with decreased UE support. She is at low risk for falls and would benefit from transition to community-based exercise program and home balance training program to improve and maintain strength and balance in order to reduce her risk of decline. Patient's HEP was reviewed and adjusted today using her handouts. Her primary complaint is of her lower leg cramping; she was educated to consult her PCP regarding this. She is appropriate to d/c from skilled PT at this time. Physical Therapy Plan Discharge Physical Therapy Discharge Reasons Plateau in Progress Discharge Comments No further skilled PT needed.
== END 2023-04-10 14:08 | disposition home or self-care (01) ==
LOC: PHYS 11:45
PROVIDERS: Family Provider Nurse Practitioner; PCP Nurse Practitioner; Referring Provider Nurse Practitioner; Visit Provider Nurse Practitioner
DX: M79.605 Pain in left leg (principal); R29.898 Other symptoms and signs involving the musculoskeletal system; R26.81 Unsteadiness on feet
CPT/HCPCS: 97110; 97112; 97161

== ENCOUNTER → 2023-11-06 12:01 | Outpatient (CLI) | payer MEDICARE, SELFPAY ==
--- NOTE | 2023-11-06 12:03 | DI.RAD.S_ITS ---
PROCEDURE: XR KNEE LT 3V INDICATIONS: Left knee pain TECHNIQUE: 3 views of the knee were acquired. COMPARISON: None. FINDINGS: Bones: No fractures or dislocations. [id number] tricompartmental osteoarthritis is seen more notably in medial femoral tibial compartment. No significant patellar subluxation. No suspicious bony lesions. Soft tissues: No joint effusion. No suspicious soft tissue calcifications. 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 No fracture or dislocation. No significant joint effusion. Dictated by: Moo Fritz M.D. on 11/06/2023 at 15:52 Approved by: Moo Fritz M.D. on 11/06/2023 at 15:59
== END ==
LOC: RAD 12:02
PROVIDERS: Family Provider Nurse Practitioner; PCP Nurse Practitioner; Referring Provider Nurse Practitioner Family; Visit Provider Nurse Practitioner Family
DX: S89.90XA Unspecified injury of unspecified lower leg, initial encounter (principal); M17.12 Unilateral primary osteoarthritis, left knee; X58.XXXA Exposure to other specified factors, initial encounter
CPT/HCPCS: 73562

== ENCOUNTER → 2023-11-21 13:17 | Outpatient (CLI) | payer MEDICARE, SELFPAY ==
[2023-11-21 14:25] LABS: Alanine Aminotransferase 13 IU/L (<35); Albumin 4.2 g/dL (3.5-5.0); Albumin Globulin Ratio 1.2 (1.0-2.8); Alkaline Phosphatase 60 U/L (38-126); Aspartate Aminotransferase 26 IU/L (14-36); BUN Creatinine Ratio 14.5 (6-22); Bilirubin Total 0.9 mg/dL (0.2-1.3); Blood Urea Nitrogen 12 mg/dL (7-17); Calcium 10.2 mg/dL (8.4-10.2); Carbon Dioxide 32 mmol/L (22-32); Chloride 102 mmol/L (98-107); Estimated Glomerular Filt Rate > 60 mL/min (>60); Globulin 3.5 g/dL (1.7-4.1); Glucose 92 mg/dL (80-110); HEMOLYSIS < 15 (0-50); Potassium 3.9 mmol/L (3.4-5.1); Sodium 137 mmol/L (137-145); Total Protein 7.7 g/dL (6.3-8.2)
== END ==
PROVIDERS: Family Provider Nurse Practitioner; PCP Nurse Practitioner; Referring Provider Nurse Practitioner; Visit Provider Nurse Practitioner
DX: Z01.812 Encounter for preprocedural laboratory examination (principal)
CPT/HCPCS: 36415; 80053

== ENCOUNTER → 2023-12-06 13:05 | Outpatient (CLI) | payer MEDICARE, SELFPAY ==
[2023-12-06 14:41] LABS: BUN Creatinine Ratio 16.5 (6-22); Blood Urea Nitrogen 14 mg/dL (7-17); Calcium 9.5 mg/dL (8.4-10.2); Carbon Dioxide 28 mmol/L (22-32); Chloride 103 mmol/L (98-107); Estimated Glomerular Filt Rate > 60 mL/min (>60); Glucose 90 mg/dL (80-110); HEMOLYSIS < 15 (0-50); Potassium 4.3 mmol/L (3.4-5.1); Sodium 139 mmol/L (137-145)
== END ==
PROVIDERS: Family Provider Nurse Practitioner; PCP Nurse Practitioner; Referring Provider Nurse Practitioner; Visit Provider Nurse Practitioner
DX: Z51.81 Encounter for therapeutic drug level monitoring (principal); M85.80 Other specified disorders of bone density and structure, unspecified site; Z78.0 Asymptomatic menopausal state; Z79.83 Long term (current) use of bisphosphonates
CPT/HCPCS: 36415; 80048

== ENCOUNTER → 2024-01-04 12:20 | Outpatient (CLI) | payer MEDICARE, SELFPAY | PROVIDERS: Family Provider Nurse Practitioner; PCP Nurse Practitioner; Visit Provider Obstetrics & Gynecology | DX: R30.0 Dysuria (principal) | CPT/HCPCS: 87077; 87086; 87186 ==

== ENCOUNTER → 2024-06-19 15:56 | Outpatient (CLI) | payer MEDICARE, SELFPAY | PROVIDERS: Family Provider Nurse Practitioner; PCP Nurse Practitioner; Visit Provider Obstetrics & Gynecology | DX: R30.0 Dysuria (principal) | CPT/HCPCS: 87077; 87086; 87186 ==

== ENCOUNTER → 2024-07-01 10:03 | Outpatient (CLI) | payer MEDICARE, SELFPAY ==
[2024-07-01 11:35] LABS: Appearance Urine UA SL CLOUDY; Bilirubin Urine UA NEGATIVE (NEGATIVE); Color Urine UA YELLOW; Glucose Urine UA NEGATIVE (Negative); Ketones Urine UA NEGATIVE (NEGATIVE); Leukocyte Esterase Urine UA 2+ (NEGATIVE); Nitrite Urine UA NEGATIVE (Negative); Occult Blood Urine UA TRACE-INTACT (Negative); Protein Urine UA TRACE (Negative); Urobilinogen Urine UA 0.2 E.U./dL (0.2)
[2024-07-01 11:39] LABS: pH Urine UA 5.5 (4.5-8.0)
[2024-07-01 11:47] LABS: Bacteria Urine Moderate (10-30); RBC Urine 1-5/HPF (0-5/HPF); Urine Volume 10mL (spun); WBC Urine 30-100/HPF (0-5/HPF)
[2024-07-01 11:48] LABS: Culture Indicated Urine Specimen Cultured; Hyaline Casts Urine 0-1/LPF; Squamous Epithelial Cell Urine 5-10 /HPF (0-5/HPF)
== END ==
LOC: LAB 10:04
PROVIDERS: Family Provider Nurse Practitioner; PCP Nurse Practitioner; Referring Provider Obstetrics & Gynecology; Visit Provider Obstetrics & Gynecology
DX: R30.0 Dysuria (principal)
CPT/HCPCS: 81001; 87077; 87086; 87186

== ENCOUNTER 2024-08-25 13:19 | Emergency (ER) | payer MEDICARE, SELFPAY ==
[2024-08-25 13:21] VITALS: BP 175/73; PULSE 83; RESP 18; TEMP 36.3; O2SAT 99; BMI 24.5
--- NOTE | 2024-08-25 13:49 | ED_ITS ---
HPI - Female Genitourinary <USMAN Campbell - Last Filed: 08/25/24 13:54> General Chief complaint: Urogenital-Female Stated complaint: poss uti Time Seen by Provider: 08/25/24 13:34 Source: patient Mode of arrival: Ambulatory History of Present Illness HPI Narrative: 84-year-old female presents to the emergency department with complaints of lower abdominal discomfort x1 day. Patient reports that her pessary fell out 3 days ago and was having a hard time replacing it. Patient believes she may have contaminated the pessary leading to her suspected UTI. Patient has had a UTI in the past and this feels identical. Patient endorses that she is able to fully empty her bladder. Related Data Home Medications Medication Instructions Recorded Confirmed acetaminophen 500 mg tablet 1,000 mg PO TID PRN 11/21/23 06/19/24 (Tylenol Extra Strength) ibuprofen 200 mg tablet 400 mg PO Q8H PRN pain 11/21/23 06/19/24 Previous Rx's Medication Instructions Recorded estradiol 0.01% (0.1 mg/gram) 0.5 g vaginal 2XW #42.5 grams 12/20/23 vaginal cream (Estrace) oxyquinoline 0.025 %-sodium lauryl 1 ea vaginal .weekly #113.4 grams 12/20/23 sulfate 0.01 % vaginal gel nitrofurantoin 100 mg PO Q12H uti 5 days #10 caps 08/25/24 monohydrate/macrocrystals 100 mg capsule (Macrobid) Allergies Allergy/AdvReac Type Severity Reaction Status Date / Time No Known Drug Allergies Allergy Verified 06/19/24 15:19 Review of Systems <USMAN Campbell - Last Filed: 08/25/24 13:54> Review of Systems Narrative: Narrative: See HPI. GENERAL: Denies chills, fatigue, fever, sweats. RESPIRATORY: Denies dyspnea, cough, wheezing, sputum. CARDIOVASCULAR: Denies chest pain, palpitations, edema. GASTROINTESTINAL: Denies nausea, vomiting, abdominal pain, diarrhea, constipation. : Denies dysuria, frequency, incontinence, hematuria, urinary retention, flank pain. Endorses suprapubic discomfort. MSK: Denies weakness, joint pain, or bony pain. SKIN: Denies rash, skin lesions, or pruritis. NEUROLOGIC: Denies weakness, dizziness, headache, numbness, confusion. Patient History <USMAN Campbell - Last Filed: 08/25/24 13:54> Medical History Short-term memory loss Osteopenia after menopause Vertigo Cataracts, bilateral Partial blindness Duodenum ulcer Gastric ulcer History of colon cancer (~2007) History of breast cancer (~1999) Glaucoma, left eye Colorectal cancer (2007) Breast cancer (2000) Surgical History H/O sinus surgery H/O right hemicolectomy (2007) History of bladder suspension procedure (2003) Status post appendectomy Status post tonsillectomy and adenoidectomy (194) Status post partial mastectomy (2000) Status post vaginal hysterectomy (2003) alcohol intake frequency: holidays/special occasions only Substance Use Type: does not use Exam <USMAN Campbell - Last Filed: 08/25/24 13:54> Narrative Exam Narrative: Exam Narrative: GENERAL: This is a well-nourished, well-developed patient, in no acute distress. HEAD: Atraumatic. Normocephalic. CARDIOVASCULAR: Regular rate and rhythm without murmurs, peripheral pulses intact, cap refill <2 sec. RESPIRATORY: Breath sounds equal and clear bilaterally. No wheezes, rales, or rhonchi. No cough. No increased respiratory effort. No accessory muscle use. GASTROINTESTINAL: Abdomen soft, non-tender, nondistended without guarding or rebound. Mild suprapubic discomfort. No CVA tenderness. NEURO: A&O x 3. SKIN: Warm, dry, no rashes or lesions noted. Initial Vital Signs Initial Vital Signs: Vital Signs Temperature 97.4 F L 08/25/24 13:21 Pulse Rate 83 08/25/24 13:21 Respiratory Rate 18 08/25/24 13:21 Blood Pressure 175/73 H 08/25/24 13:21 Pulse Oximetry 99 08/25/24 13:21 Oxygen Delivery Method Room Air 08/25/24 13:21 Reviewed <Bouchra Balderrama DO - Last Filed: 08/25/24 18:19> Initial Vital Signs Initial Vital Signs: Vital Signs Temperature 97.4 F L 08/25/24 13:21 Pulse Rate 83 08/25/24 13:21 Respiratory Rate 18 08/25/24 13:21 Blood Pressure 175/73 H 08/25/24 13:21 Pulse Oximetry 99 08/25/24 13:21 Oxygen Delivery Method Room Air 08/25/24 13:21 Course <USMAN Campbell - Last Filed: 08/25/24 13:54> Orders Ordered: ED Orders 08/25/24 13:36 Urine Culture Stat Urine Microscopic Stat Vital Signs Vital signs: Vital Signs - 8 hr 08/25/24 13:21 08/25/24 13:53 Temperature 97.4 F L Pulse Rate 83 80 Respiratory Rate 18 16 Blood Pressure 175/73 H 137/99 H Pulse Oximetry 99 97 Oxygen Delivery Method Room Air Room Air <Bouchra Balderrama DO - Last Filed: 08/25/24 18:19> Orders Ordered: ED Orders 08/25/24 13:36 Urine Culture Stat Urine Microscopic Stat Vital Signs Vital signs: Vital Signs - 8 hr 08/25/24 13:21 08/25/24 13:53 Temperature 97.4 F L Pulse Rate 83 80 Respiratory Rate 18 16 Blood Pressure 175/73 H 137/99 H Pulse Oximetry 99 97 Oxygen Delivery Method Room Air Room Air MDM - Female Genitourinary <USMAN Campbell - Last Filed: 08/25/24 13:54> Differential Diagnosis Differential diagnosis: Likely urinary tract infection Lab Data Labs: Lab Results 08/25/24 Range/Units 13:36 Urine RBC 1-5/hpf (0-5/HPF) Urine WBC 10-30/hpf H (0-5/HPF) Ur Squamous Epith Cells >30 /hpf H D (0-5/HPF) Urine Bacteria Moderate (10-30) H (None) Urine Mucus 2+ H (Negative) Ur Culture Indicated? Specimen cultured Vol Urine Centrifuged 10ml (spun) Urine Dip Bedside Urine Glucose Negative Bedside Urine Bilirubin - Negative Bedside Urine Ketone - Negative Urine Specific [place] 1.010 Bedside Urine Occult Blood +/- Bedside Urine pH 7.0 Bedside Urine Protein + 30 Bedside Urine Urobilinogen - Negative Bedside Urine Nitrite - Negative Bedside Urine Leukocytes ++ 125 Esterase MDM Narrative Medical decision making narrative: 84-year-old female with UTI like symptoms. Point of care urine dip was consistent with UTI, positive blood and leuks. Will treat with Macrobid. Informed patient and spouse that we would send off a urine sample for culture and contact them with the results of her required a change in antibiotics. Patient and spouse verbalized understanding and were agreeable to course of action. <Bouchra Conchis, DO - Last Filed: 08/25/24 18:19> Lab Data Labs: Lab Results 08/25/24 Range/Units 13:36 Urine RBC 1-5/hpf (0-5/HPF) Urine WBC 10-30/hpf H (0-5/HPF) Ur Squamous Epith Cells >30 /hpf H D (0-5/HPF) Urine Bacteria Moderate (10-30) H (None) Urine Mucus 2+ H (Negative) Ur Culture Indicated? Specimen cultured Vol Urine Centrifuged 10ml (spun) Urine Dip Bedside Urine Glucose Negative Bedside Urine Bilirubin - Negative Bedside Urine Ketone - Negative Urine Specific [place] 1.010 Bedside Urine Occult Blood +/- Bedside Urine pH 7.0 Bedside Urine Protein + 30 Bedside Urine Urobilinogen - Negative Bedside Urine Nitrite - Negative Bedside Urine Leukocytes ++ 125 Esterase Discharge Plan Departure Patient Disposition: Home Clinical Impression: Urinary tract infection Qualifiers: Urinary tract infection type: acute cystitis Hematuria presence: with hematuria Qualified Code(s): N30.01 - Acute cystitis with hematuria Instructions: DI for Urinary Tract Infection (UTI) Activity Restrictions/Additional Instructions: *You have been diagnosed with a urinary tract infection. We will treat this with an antibiotic known as Macrobid. We will also send off a urine sample for culture and contact you with the results for required a change in antibiotics. Please make sure you drink plenty of water and follow up with your family doctor as needed. *What to do: *Please continue to take your regular medications as directed. [x ] New medication prescriptions sent to your pharmacy: [[facility]] [ ] New medication written as a paper prescription [ ] No new medications given *Please follow up with your primary care provider in 2-3 days, call for an appointment. Let them know you were seen in the Emergency Department and that we ask that you be seen in follow up. We will electronically transmit a record of today's note if your PCP is in our system *If you do not have a primary care provider please contact the [facility] Resource line at [phone]. They will ask some questions about your medical history and help get you set up with a doctor in the community. ? Return to ER if you should have any new, worsening or concerning symptoms, such as worsening pain, severe headache, confusion, chest pain, difficulty breathing, fever greater than 101 F, shaking chills, persistent vomiting to the point that you cannot drink fluids, or other new or worsening symptoms. Prescriptions: New nitrofurantoin monohyd/m-cryst [Macrobid] 100 mg capsule 100 mg PO Q12H 5 Days Qty: 10 0RF Rx Instructions: must administer with a meal/food No Action estradiol [Estrace] 0.01 % (0.1 mg/gram) cream 0.5 g vaginal 2XW Qty: 42.5 3RF Rx Instructions: for 14 days oxyquinoline-sod.lauryl sulfat 0.025-0.01 % gel 1 ea vaginal .weekly Qty: 113.4 3RF Rx Instructions: 1 applicator in the vagina weekly acetaminophen [Tylenol Extra Strength] 500 mg tablet 1,000 mg PO TID PRN ibuprofen 200 mg tablet 400 mg PO Q8H PRN (Reason: pain) Referrals: Maria Fernanda Minor ARNP [Primary Care Provider] - Stand Alone Forms: Patient Portal/API/Survey ED Sign-out <Bouchra Balderrama DO - Last Filed: 08/25/24 18:19> Cosign ED Attending Alfredature Attestation: I was available for consultation.
[2024-08-25 13:53] VITALS: BP 137/99; PULSE 80; RESP 16; O2SAT 97
[2024-08-25 13:56] LABS: Bacteria Urine Moderate (10-30); Culture Indicated Urine Specimen Cultured; Mucus Urine 2+ (Negative); RBC Urine 1-5/HPF (0-5/HPF); Squamous Epithelial Cell Urine >30 /HPF (0-5/HPF); Urine Volume 10mL (spun); WBC Urine 10-30/HPF (0-5/HPF)
== END 2024-08-25 13:54 | disposition home or self-care (01) ==
PROVIDERS: Emergency Provider Registered Nurse; Family Provider Nurse Practitioner; PCP Nurse Practitioner
DX: N30.01 Acute cystitis with hematuria (principal)
CPT/HCPCS: 81003; 81015; 87086; 99281; 99282

== ENCOUNTER → 2024-09-06 10:27 | Outpatient (CLI) | payer MEDICARE, SELFPAY | PROVIDERS: Family Provider Nurse Practitioner; PCP Family Medicine; Visit Provider Obstetrics & Gynecology | DX: R30.0 Dysuria (principal); R31.9 Hematuria, unspecified | CPT/HCPCS: 87086 ==

== ENCOUNTER → 2024-12-26 09:55 | Outpatient (CLI) | payer MEDICARE, SELFPAY ==
--- NOTE | 2024-12-26 09:56 | DI.RAD.S_ITS ---
PROCEDURE: XR DEXA AXIAL SKELETON INDICATIONS: osteoporosis COMPARISON: [facility], CR, XR DEXA AXIAL SKELETON, 12/26/2022, 12:00. [facility], CR, XR DEXA AXIAL SKELETON, 12/24/2020, 13:54. FINDINGS: Lumbar Spine (L3-L4): Bone mineral density 0.841 g/cm2, T score -2.4. Prior DEXA was performed using dissimilar scan type or analysis method. Left Femoral Neck: Bone mineral density is 0.659 g/cm2, T score -1.7. Left Hip: Bone mineral density is 0.720 g/cm2, T score -1.8. Prior DEXA was performed using dissimilar scan type or analysis method. Fracture Risk Calculation (when applicable): 10-year fracture risk of a major osteoporotic fracture 35% and of a hip fracture 21%. (T score greater or equal to -1.0 to: NORMAL) (T score from -1.1 to -2.4: OSTEOPENIA) (T score less than or equal to -2.5: OSTEOPOROSIS) IMPRESSION: 1. By WHO criteria, patient has osteopenia. 2. 10-year fracture risk of a major osteoporotic fracture 35% and of a hip fracture 21%. Follow-up guidelines as follows: Osteoporosis: Consider a repeat DEXA and Vertebral Fracture Assessment (VFA) exam in 2 years or sooner if medically necessary, to reassess this patient's status. Osteopenia: Consider a repeat DEXA in 2-3 years to reassess this patient's status, or if there is a new clinical indication. Normal: Consider a repeat DEXA in 5 years or sooner, or if there is a new clinical indication. All treatment decisions require clinical judgment and consideration of individual patient factors, including patient preferences, comorbidities, previous drug use, risk factors not captured in the FRAX model (e.g., frailty, falls, vitamin D deficiency, increased bone turnover, interval significant decline in bone density ) and possible under- or over-estimation of fracture risk by FRAX. In addition, the NOF Guide recommends that FDA-approved medical therapies be considered in postmenopausal women and men age >= 50 years with a: * Hip or vertebral (clinical or morphometric) fracture * T-score of <=-2.5 at the spine or hip * Ten-year fracture probability by FRAX of >= 3% for hip fracture or >=20% for major osteoporotic fracture. Approved by: Ricardo Way M.D. on 12/26/2024 at 21:07
== END ==
LOC: RAD 09:56
PROVIDERS: Family Provider Nurse Practitioner; PCP Family Medicine; Referring Provider Nurse Practitioner; Visit Provider Nurse Practitioner
DX: M85.89 Other specified disorders of bone density and structure, multiple sites (principal)
CPT/HCPCS: 77080

== ENCOUNTER → 2025-01-07 13:05 | Outpatient (CLI) | payer MEDICARE, SELFPAY ==
[2025-01-07 13:41] LABS: Alanine Aminotransferase 18 IU/L (<35); Albumin 4.4 g/dL (3.5-5.0); Albumin Globulin Ratio 1.4 (1.0-2.8); Alkaline Phosphatase 60 U/L (38-126); Aspartate Aminotransferase 34 IU/L (14-36); BUN Creatinine Ratio 17.4 (6-22); Blood Urea Nitrogen 16 mg/dL (7-17); Calcium 9.8 mg/dL (8.4-10.2); Carbon Dioxide 25 mmol/L (22-32); Chloride 105 mmol/L (98-107); Estimated Glomerular Filt Rate > 60 mL/min (>60); Globulin 3.1 g/dL (1.7-4.1); Glucose 99 mg/dL (80-110); HEMOLYSIS < 15 (0-50); Sodium 139 mmol/L (137-145); Total Protein 7.5 g/dL (6.3-8.2)
[2025-01-07 14:20] LABS: Vitamin D 25 Hydroxy (D3) 50.6 ng/mL (30.0-100.0)
== END ==
PROVIDERS: Family Provider Nurse Practitioner; PCP Family Medicine; Referring Provider Family Medicine; Visit Provider Family Medicine
DX: Z01.812 Encounter for preprocedural laboratory examination (principal); M85.80 Other specified disorders of bone density and structure, unspecified site; Z78.0 Asymptomatic menopausal state; Z79.83 Long term (current) use of bisphosphonates; Z51.81 Encounter for therapeutic drug level monitoring
CPT/HCPCS: 36415; 80053; 82306

== ENCOUNTER → 2025-02-11 12:02 | Outpatient (CLI) | payer MEDICARE, SELFPAY ==
--- NOTE | 2025-02-11 12:04 | DI.US.S_ITS ---
PROCEDURE: US PELVIC COMPLETE INDICATIONS: PMB TECHNIQUE: Real-time scanning was performed of the pelvic organs, with image documentation. Additional endovaginal scanning was necessary due to incomplete visualization of the adnexal and endometrial structures by transabdominal scanning. COMPARISON: None. FINDINGS: Uterus: Status post hysterectomy. A pessary device is present. Ovaries: Status post bilateral oophorectomy. No suspicious adnexal mass. Other: No pathologic free abdominal or pelvic fluid. IMPRESSION: No significant sonographic abnormality. Uterus and ovaries are surgically absent. Approved by: Ricardo Way M.D. on 02/11/2025 at 15:12
== END ==
LOC: US 12:03
PROVIDERS: Family Provider Nurse Practitioner; PCP Family Medicine; Referring Provider Family Medicine; Visit Provider Family Medicine
DX: N95.0 Postmenopausal bleeding (principal); Z90.710 Acquired absence of both cervix and uterus; Z90.722 Acquired absence of ovaries, bilateral
CPT/HCPCS: 76830; 76856

== ENCOUNTER → 2025-04-15 11:00 | Outpatient (CLI) | payer MEDICARE, SELFPAY ==
[2025-04-15 12:15] LABS: Add Manual Diff / Slide Review NO; Hematocrit 40.0 % (36-46); Hemoglobin 13.3 g/dL (12.0-16.0); Lymphocytes Absolute Auto 1500 /uL (1100-4500); Mean Corpuscular HGB Conc 33.1 % (30-36); Mean Corpuscular Hemoglobin 32.3 PG (26-34); Mean Corpuscular Volume 97.6 fL (80-100); Platelet Count 193 X10^3/uL (150-400)
[2025-04-15 12:42] LABS: Appearance Urine UA SL CLOUDY; Bilirubin Urine UA NEGATIVE (NEGATIVE); Color Urine UA YELLOW; Glucose Urine UA NEGATIVE (Negative); Ketones Urine UA NEGATIVE (NEGATIVE); Leukocyte Esterase Urine UA 2+ (NEGATIVE); Nitrite Urine UA NEGATIVE (Negative); Occult Blood Urine UA NEGATIVE (Negative); Protein Urine UA NEGATIVE (Negative); Specific Gravity Urine UA <=1.005 (1.000-1.035); Urobilinogen Urine UA 0.2 E.U./dL (0.2)
[2025-04-15 12:56] LABS: pH Urine UA 5.5 (4.5-8.0)
[2025-04-15 12:58] LABS: Culture Indicated Urine Cult Not Indicated
[2025-04-15 16:32] LABS: Cholesterol 164 mg/dL (140-199); HDL Cholesterol 65 mg/dL (40-60); Triglycerides 89 mg/dL (35-150)
== END ==
PROVIDERS: Obstetrics & Gynecology; PCP Family Medicine; Referring Provider Family Medicine; Visit Provider Family Medicine
DX: Z00.00 Encounter for general adult medical examination without abnormal findings (principal); E78.5 Hyperlipidemia, unspecified; R42 Dizziness and giddiness; R30.0 Dysuria
CPT/HCPCS: 36415; 80061; 81001; 85025

== ENCOUNTER 2025-04-22 16:25 | Emergency (ER) | payer MEDICARE, SELFPAY ==
[2025-04-22 16:33] VITALS: BP 140/81; PULSE 56; RESP 18; TEMP 36.8; O2SAT 100; BMI 24.5
--- NOTE | 2025-04-22 17:02 | DI.RAD.S_ITS ---
PROCEDURE: XR CHEST 2V INDICATIONS: sob TECHNIQUE: 2 views of the chest were acquired. COMPARISON: None. FINDINGS: Surgical changes and devices: Right lumpectomy clips. Lungs and pleura: Diffuse interstitial prominence. No pleural effusions or pneumothorax. Mediastinum: Mediastinal contours are normal. Heart size is enlarged. Bones and chest wall: No suspicious bony abnormalities. Soft tissues appear unremarkable. IMPRESSION: Cardiomegaly, diffuse interstitial prominence Dictated by: Nagi Cano M.D. on 04/22/2025 at 18:13 Approved by: Nagi Cano M.D. on 04/22/2025 at 18:14
== END 2025-04-22 18:36 | disposition left against medical advice (07) ==
PROVIDERS: Emergency Provider Student in an Organized Health Care Education/Training Program; PCP Family Medicine
DX: R05.9 Cough, unspecified (principal)
CPT/HCPCS: 71046; 99281

== ENCOUNTER → 2025-04-29 12:30 | Outpatient (CLI) | payer MEDICARE, SELFPAY ==
--- NOTE | 2025-04-29 12:31 | DI.ECHO.S_ITS ---
[facility] : : [id number] : [place] : : [id number] : : Phone: [phone] Echocardiogram Report + + :Name: GEORGIE RAO Study Date: 04/29/2025 Height: 61 in : :[facility] ReadingLocation: Weight: 130 lb : : Gender: Female BSA: 1.6 m2 : :: 1940 Age: 84 yrs BP: 134/72 mmHg: :Reason For Study: ENLARGED HEART : :Ordering Physician: DOMENICA, : :DYLAN Blackburn Performed By: Clyde Aguirre : :Referring: DYLAN METZGER : + + Interpretation Summary 1) Normal left ventricular thickness, size, wall motion, and systolic function (EF 60-65%). 2) Moderately enlarged right ventricle with normal function. 3) There is severe biatrial enlargement. 4) There is moderate tricuspid regurgitation. 5) A secundum type atrial septal defect is present. Doppler evidence suggests a left to right interatrial shunt. 6) The right ventricular systolic pressure is estimated to be at least 61 mmHg based on an estimated right atrial pressure of 3 mm Hg. 7) There is a trivial pericardial effusion noted. 8) No prior Echo available for comparison. Recommend cardiology consult for further assessment and management. Procedure: A two-dimensional transthoracic echocardiogram with color flow and Doppler was performed. The study quality was technically good. The patient had an echocardiogram, but there is no comparison study available. The patient was in atrial fibrillation with heart rates between 72-93 bpm during the exam. Left Ventricle: The left ventricle is normal in size. There is normal left ventricular wall thickness. There is no ventricular septal defect visualized. A false chord is noted (normal variant). The ejection fraction is estimated to be 60-65%. Diastolic function could not be accurately assessed due to atrial fibrillation. Right Ventricle: The right ventricle is moderately dilated. The right ventricular systolic function is normal. Atria: There is severe biatrial enlargement. A secundum type atrial septal defect is present. Doppler evidence suggests a left to right interatrial shunt. Mitral Valve: There is mild mitral annular calcification. The mitral valve leaflets are mildly calcified. The mitral valve leaflets appear mildly thickened. There is trace mitral regurgitation. Aortic Valve: The aortic valve is trileaflet. The aortic valve opens well. The aortic valve is mildly calcified. There is mild aortic regurgitation. Tricuspid Valve: The tricuspid valve leaflets are thickened and/or calcified, but open well. There is moderate tricuspid regurgitation. The right ventricular systolic pressure is estimated to be at least 61 mmHg based on an estimated right atrial pressure of 3 mm Hg. Pulmonic Valve: The pulmonic valve is not well seen, but is grossly normal. There is trace pulmonic regurgitation. Great Vessels: The aortic root is normal size. The dimensions of the ascending aorta are normal. The pulmonary artery is not well visualized, but is probably normal size. The IVC is of normal diameter and collapses greater than 50% with a sniff. This suggests a low right atrial pressure of 3 mm Hg. Pericardium/ Pleura There is a trivial pericardial effusion noted. There is no pleural effusion. MMode/2D Measurements & Calculations LVIDd: 4.4 cm LVOT diam: 1.9 cm LVIDs: 2.8 cm Ao root diam: 2.9 cm FS: 35.7 % EPSS: 0.70 cm IVSd: 1.0 cm LVPWd: 0.72 cm LV xiong. diameter/BSA (cm/m^2): 2.8 LV sys. diameter/BSA (cm/m^2): 1.8 LA A2 area: 24.3 cm2 RA long axis: 6.1 cm LA A4 area: 28.1 cm2 RA area: 24.8 cm2 LA length (vol): 6.9 cm RA vol: 85.5 ml LA vol: 84.7 ml RA : 54.4 ml/m2 LA vol index: 53.9 ml/m2 IVC diam: 1.9 cm RVD1 (basal): 4.0 cm RVD2 (mid): 3.1 cm TAPSE: 3.5 cm Doppler Measurements & Calculations Ao V2 max: 172.7 cm/sec LVOT Max Nelson: 101.0 cm/sec Ao V2 mean: 119.1 cm/sec LV V1 max P.1 mmHg Ao max P.9 mmHg LV V1 VTI: 20.7 cm Ao mean P.4 mmHg ZULMA(I,D): 2.0 cm2 Ao V2 VTI: 29.9 cm ZULMA(V,D): 1.7 cm2 sev ratio: 0.69 ZULMA indexed to BSA (cm^2/m^2): 1.2 AI P1/2t: 569.7 msec AI dec slope: 215.1 cm/sec2 MV E max nelson: 73.8 cm/sec TR max nelson: 382.2 cm/sec MV A max nelson: 93.4 cm/sec TR max P.4 mmHg MV E/A: 0.79 PA V2 max: 200.1 cm/sec Med Peak E' Nelson: 5.2 cm/sec PA V2 mean: 136.2 cm/sec E/E' med: 14.1 PA mean P.3 mmHg Lat Peak E' Nelson: 7.2 cm/sec PA pr(Accel): 44.7 mmHg E/E' lat: 10.2 E/e' average: 12.2 MV dec time: 0.16 sec SV(LVOT): 58.5 ml Reading Physician:06:05 PM
== END ==
PROVIDERS: PCP Family Medicine; Referring Provider Family Medicine; Visit Provider Physician Assistant
DX: I08.2 Rheumatic disorders of both aortic and tricuspid valves (principal); R01.1 Cardiac murmur, unspecified; R05.1 Acute cough; R93.89 Abnormal findings on diagnostic imaging of other specified body structures; R06.09 Other forms of dyspnea
CPT/HCPCS: 93306

== ENCOUNTER → 2025-09-02 15:44 | Outpatient (CLI) | payer MEDICARE, SELFPAY | PROVIDERS: PCP Family Medicine; Visit Provider Obstetrics & Gynecology | DX: N89.8 Other specified noninflammatory disorders of vagina (principal) | CPT/HCPCS: 81514 ==